=== PATIENT | female | born 1945 | race Caucasian/White ===

== ENCOUNTER 2023-10-02 21:12 | Inpatient (IN) | payer MEDICARE, BC, SELFPAY ==
[2023-10-02 21:13] VITALS: BP 111/87; PULSE 85; RESP 18; TEMP 36.4; O2SAT 93
--- NOTE | 2023-10-02 21:15 | DI.RAD_ITS ---
Exam(s) XR PELVIS AP XR FEMUR RT EXAM: XR PELVIS AP and XR femur RT CLINICAL HISTORY: R hip fracture. TECHNIQUE: 2D digital imaging was performed.Five images were obtained. COMPARISON: There are no priors for comparison. FINDINGS: BONES: There is an acute intertrochanteric fracture of the right femur. The large lesser trochanteri c fracture fragment is medially displaced and rotated. No other acute fractures identified. Note is made of intramedullary janell and screw in the proximal left femur. No bony destructive lesion is seen . JOINTS: No dislocation present. The visualized portions of the right hip and right knee show no evide nce of dislocation.. SOFT TISSUE: Normal. IMPRESSION: Intertrochanteric fracture of the right femur as described above. DATA REPOSITORY: RADIATION DOSE DELIVERED:
--- NOTE | 2023-10-02 21:25 | ED.GENADUL_ITS ---
Discharge Plan Disposition Patient Disposition: Admit to [facility] Condition: Stable Discharge Details Clinical Impression: Fracture of right hip Primary Care Provider: Clementine,Local ED Provider: Lisandro Robins Medical Decision Making This dictation utilizes [id number] dictation software and may contain unedited grammatical errors. 78 y/o F presents to ED today with a chief complaint of R hip pain, fall at home while toiletting. Onset and characteristics include ground level fall outside bathroom, denies medical symptomology like dizziness, nausea, fever, vertigo, visual changes prior to fall. Patients' medical history: Noncontributory, denies significant cardiac disease, takes half of a 25 mg metoprolol for tachycardia. Family and social history: noncontributory, denies Fhx clotting disorders.. Pertinent exam findings / vital signs include right hip tenderness with right leg length discrepancy, right dorsalis pedis pulse 2+, sensation intact in the right foot, no rigid compartment to the right femur. Differential / pathologies of concern include Hip Fracture, Hip Strain/Sprain, Femur Fracture. Diagnostic studies of: -XR Hip, XR Femur - shows significant fracture of proximal R femur, consulting orthopaedics. -EKG ordered after admission Interventions of: -2mg IV morphine PRN, 4mg IV Zofran PRN, NPO. ED Course: Patient has a significant right hip fracture- intratrochanteric likely needing surgical repair with significant displacement of a portion, angulated, the proximal femur, discussed with Dr. Shane who agrees, consulted with Hospitalist Dr Page, who accepted for admission. No history of significant cardiac disease. Findings not consistent with NV compromise of lower extremity. Disposition of Fracture of Right Hip. Patient verbalized understanding of the plan and return to ED criteria and engaged in shared decision making. Medical Records Medical records reviewed: Yes I reviewed the patient's medical records. Imaging Data Radiologic Study: Attestation: I personally reviewed and interpreted this imaging study as follows: Imaging: X-Ray My impression: Fracture to proximal humerus, possibly intertrochanteric HPI General Date/Time Provider Initiated Documentation: 10/02/23 21:23 . HPI Narrative: 78 year-old female, R-foot dominant, presents to ED today by EMS with a chief complaint of fall at home outside the bathroom, per EMS R leg shortening with onset just prior to arrival. Quality described as pain in the R hip down through the leg, with some tingling to the R foot, no radiation to chest pain prior to fall, dizziness, states she missed a step. Severity is described as 8-9/10. Palliating factors include 150mcg fentanyl by EMS and 4mg zofran en route by EMS. Provoking factors include nothing specific. Events leading up to the incident/Associated Symptoms: Patient has history of janell to L hip/femur. Patient not anticoagulated. Related Data Allergies Allergy/AdvReac Type Severity Reaction Status Date / Time Sulfa (Sulfonamide Allergy Intermediate Unverified 10/02/23 21:23 Antibiotics) General Stated Complaint: Orthopedic BERYL: 3 Review of Systems All systems reviewed & are unremarkable except as noted in HPI and below PFSH All Active Problems (Updated 10/02/23 @ 22:11 by GAYE Alva) Fracture of right hip (Acute) Social History Smoking/Tobacco Use Status: Never Smoking risk assessment performed?: Yes Alcohol Intake: never Substance use type: does not use Housing: other Exam Narrative Exam Narrative: GENERAL APPEARANCE: Well-nourished, non-toxic, awake and alert, atraumatic, no acute distress. SKIN: Warm, pink, dry, intact, without rashes/lesions/ulcerations. HEAD: Normocephalic, atraumatic, normal hair distribution for gender/age. EYES: Pupils PERRLA, EOMs intact without nystagmus, normal conjunctiva, no exudates on lids/lashes. ENT: Nares patent, no circumoral cyanosis, no facial swelling NECK: Supple, trachea midline, painless cervical ROM. LUNGS/CHEST: Lungs CTA bilaterally - no rhonchi/rales/wheezes, non-labored respirations, normal A/P diameter, symmetrical expansion, no chest wall deformity HEART (CV/PV): Regular rate and rhythm without murmur, no peripheral edema, no JVD. ABDOMEN: Soft, non-distended, no guarding, no tenderness. MSK: Normal ROM, no swelling/deformity to bilateral UEs or LEs, moving all extremities without weakness, no cyanosis, spine midline without tenderness, normal curvature. Tenderness to palpation at the right proximal femur, pain radiates up to the proximal femur with varus valgus forces at the distal femur, the calf is unremarkable, right dorsalis pedis pulse 2+, dorsi plantarflexion intact. NEURO: Mental Status AAOx4 - alert to person, place, time, events No facial droop, no forehead involvement. Motor: No focal weakness - strength 5/5 in bilateral UEs and LEs, proximal and distal, symmetric. Sensory: sensation intact to light touch globally. Gait NT. PSYCH: euthymic, cooperative, pleasant, appropriate speech Course Vital Signs Vital signs: Vital Signs Temperature 36.4 C 10/02/23 21:13 Pulse 85 10/02/23 21:13 Respiratory Rate 18 10/02/23 21:13 Blood Pressure 111/87 10/02/23 21:13 Pulse Oximetry 93 10/02/23 21:13 Temperature 36.4 C 10/02/23 21:13 Temperature Source Tympanic 10/02/23 21:13 Pulse 85 10/02/23 21:13 Respiratory Rate 18 10/02/23 21:13 Respiratory Effort Normal 10/02/23 21:18 Blood Pressure 111/87 10/02/23 21:13 Blood Pressure Position Supine 10/02/23 21:13 Pulse Oximetry 93 10/02/23 21:13 Oxygen Delivery Method Room Air 10/02/23 21:13 Oxygen Flow Rate 0 10/02/23 21:13
[2023-10-02] MEDS: Acetaminophen 500 MG TAB 1000 MG PO (21:36)
[2023-10-02] MEDS: MORPHine 10 MG/ML VIAL 2 MG IVP ×2 (21:50→22:32)
--- NOTE | 2023-10-02 22:14 | W.ORTHOCONSU ---
Date of service: 10/03/23 Time of Service: 08:45 Assessment and Plan Assessment and plan (1) Fracture of right hip: Status: Acute Assessment and plan: 78 year old female with Right hip intertrochanteric fx Medical admission & optimization for surgery tomorrow: Right hip intramedullary nailing Bedrest, pain control, SCDs, NPO post midnight Will d/w hospitalist and ARMAND AM update?patient awake alert resting comfortably in hospital bed, complains of discomfort localized about the right hip. Walks without assist device. Visiting [place] for the holiday, mechanical fall last night. Isolated right hip injury. Left hip fracture and nailing about 3 years ago home in [facility], describes prolonged period of apprehension and difficulty mobilizing postoperatively. Concerned about blood clot, no personal issues with blood clotting, but her ?not genetically related?his family has apparently some blood clots. She was on injections debridement of blood clot after last hip fracture. She is not from this area, does not have family in this area. Denies any significant medical history. No personal allergies, but states she has a family history possibly allergic or allergen to sulfa medications. No pre-existing hip pain or hip dysfunction on this right side. Patient demonstrates intact motor no deformity tenderness and sensation intact throughout bilateral upper extremities and left lower extremity. Right hip discomfort, not vigorously tested. Thigh compartments soft. No overlying skin lesions. Remainder of right lower extremity below the knee nontender, sensation intact, demonstrates intact foot and ankle motor. No paresthesias. No SCDs or teds on either side, but calfs are soft nontender no signs of blood clot. Pelvis and femur x-rays reviewed showing obvious right hip intertrochanteric fracture with fairly maintained alignment through the intertrochanteric region, but with a large displaced lesser trochanteric fracture fragment. Partially visualized contralateral left hip cephalomedullary nail in place. No femoral shaft or knee fractures visualized. Discussed thoroughly with patient. Probably similar type fracture and treatment to her contralateral side. No pathologic or lytic lesions although the lesser trochanteric fractures can be associated with neoplasm. Will scrutinize postoperative films. Literature review does not show any clear benefit for reduction fixation of lesser trochanteric fractures in the setting of intertrochanteric hip nailing. Start postoperative chemical DVT prophylaxis within 12-24 hours after surgery. Decision to proceed with surgery today: Right hip intramedullary nailing The risks, benefits, and alternatives were thoroughly discussed. Patient was counseled regarding pain management, expected postoperative course, and recovery timeline. All questions were answered. Informed consent was obtained. Patient agrees and understands the treatment plan. PFSH All Active Problems (Updated 10/03/23 @ 00:13 by Neal Page) Discharge planning issues (Acute) DVT prophylaxis (Acute) Fracture of right hip (Acute) Medical History (Updated 10/03/23 @ 00:13 by Neal Page) Osteoporosis Hypertension Surgical History (Updated 10/03/23 @ 00:12 by Neal Page) S/P vertebroplasty Status post-operative repair of closed fracture of left hip Family History (Updated 10/03/23 @ 00:14 by Neal Page) Mother , age 78, does not know cancer source Cancer Father , in 80s Heart disease Social History (Updated 10/03/23 @ 00:15 by Neal Page) Smoking/Tobacco Use Status: Never Smoking risk assessment performed?: Yes Alcohol Intake: current Details: drink once/week Drug use: Never Substance use type: does not use Housing: other Additional Social history: Lives with Mayank in [facility] near [place]. They [facility] at [facility]. 2 kids but not local Results Last Vital Signs Temp 97.6 F 10/02/23 21:13 Pulse 85 10/02/23 21:13 Resp 18 10/02/23 21:13 BP 111/87 10/02/23 21:13 Pulse Ox 93 10/02/23 21:13 Labs 10/02/23 22:00 10/02/23 22:00
--- NOTE | 2023-10-02 22:15 | RT.EKG_ITS ---
APPROVED REPORT Exam: Resting ECG Reason for Exam: clearance for surgery Patient Location: E HR:66 bpm ECG Measurements Heart Rate 66 AXIS VT 181 P 57 QRSd 75 QRS 19 QT 417 T 64 QTc 437 Conclusion Sinus rhythm...normal P axis, V-rate 60- 99 I have reviewed and interpreted ECG and agree with software generated interpretation.
[2023-10-02] MEDS: Ondansetron 4 MG/2 ML VIAL IVP (22:30)
--- NOTE | 2023-10-02 22:45 | DI.VRAD_ITS ---
PROCEDURE INFORMATION: Exam: XR Pelvis Exam date and time: 10/02/2023 9:54 PM Age: 78 years old Clinical indication: Other: RT hip fracture? TECHNIQUE: Imaging protocol: Radiologic exam of the pelvis. Views: 1 or 2 view. COMPARISON: No relevant prior studies available. FINDINGS: Bones/joints: An acute fracture is present across the intertrochanteric right femur. A large displaced fracture fragment of the lesser trochanter is part of the fracture. The fracture line through the greater trochanter shows mild diastasis and no significant displacement. The pubic rami are intact. Hardware is present in the left femur. Soft tissues: Unremarkable. IMPRESSION: Intratrochanteric fracture in the right femur. Dictated and Authenticated by: Lyndon Lopez MD. Ordering:ARMOND Mcmahon MD
--- NOTE | 2023-10-02 22:50 | DI.VRAD_ITS ---
PROCEDURE INFORMATION: Exam: XR Right Femur Exam date and time: 10/02/2023 9:55 PM Age: 78 years old Clinical indication: Other: R hip fracture, pain through knee TECHNIQUE: Imaging protocol: Radiologic exam of the right femur. Views: 2 views. COMPARISON: CR XR PELVIS AP 10/02/2023 9:54 PM FINDINGS: Bones/joints: An acute fracture of the intertrochanteric right femur is noted. The lesser trochanter is displaced as a free fragment. There are no other fractures observed in the femur. The hip and knee are appropriately located. Soft tissues: Unremarkable. IMPRESSION: Intratrochanteric fracture, right femur. Dictated and Authenticated by: Lyndon Lopez MD. Ordering:ARMOND Mcmahon MD
--- NOTE | 2023-10-02 23:07 | W.PM.HP.N ---
Date of service: 10/02/23 Time of Service: 23:07 Assessment and Plan Assessment and plan (1) Fracture of right hip: Status: Acute Assessment and plan: Ms Sauer tripped and fell and suffered an intratrocanteric right femur fracture. She has already be evaluated by Dr. Shane from orthopedics with repair planned for the morning. She is NPO now. She is a little dry so will start mainteance fluids. She is not very active but has adequate functional capacity at baseline, no history of vascular or respiratory disease. Her EKG is reassuring Morphine effective at 4mg, but caused nausea. Has had good relief with fentanyl without nausea, will change PRN to this. Mojica given limited mobility, she hasn't been able to urinate since her fall. Remove once mobilizing postop. Qualifiers: Encounter type: initial encounter Fracture type: closed Qualified Code(s): S72.001A - Fracture of unspecified part of neck of right femur, initial encounter for closed fracture (2) Hypertension: Assessment and plan: BP is well controlled on low dose metoprolol. She states she changed from another medication to metoprolol after her left hip surgery because her heart was beating rapidly during rehabilitation. She is sure it is the tatrate form and it is once a day, which is not standard and may be allowing for pulse/BP elevation at night. However, I am hesitant to change form prior to surgery. Continue her home metoprolol at standard BID dosing. I do wonder with her use of aspirin if she did have paroxysmal atrial fibrillation and that would explain the story. Try to get PCP records. Qualifiers: Hypertension type: primary hypertension Qualified Code(s): I10 - Essential (primary) hypertension (3) DVT prophylaxis: Status: Acute Assessment and plan: TEDs/SCDs for now, post op per orthopedics (4) Discharge planning issues: Status: Acute Assessment and plan: Rehab per orthopedics, she would prefer rehabilitation facility near [place], [place] History of Present Illness History of Present Illness Chief Complaint: fall, hip pain Narrative: 78 yo F with a history of osteoporosis and left femur fracture repair in 2019 after a fall presents after missing a step and falling with right hip pain. She was staying at the [facility] with her for the holiday weekend and had eaten dinner and was returning to the room after using the restroom. She missed a step down and lost her balance, fell on right side and had immediate pain. Similar to fall in which she broke the other hip 3 years ago. She felt fine before the fall, had no chest pain, dizziness, weakness, palpitations, or other signs of illness. She had one glass of wine with her meal, no other alcohol. Of note she had some tachycardia during rehab after her first hip fracture, she thinks related to pain. At that time she was on another blood pressure medication. When they started metoprolol they stopped the other medication. She has a history of taking alendronate for years, but not since the 2020 fracture. She takes calcium and vitamin D. She takes aspirin 81mg but she isn't sure why, no history of heart disease or stroke, no history of blood clot. She can get up stairs and walk a couple blocks on the flat, but has to rest before doing much more than that. She doesn't exercise regularly. Review of Systems Constitutional Constitutional: Denies anorexia, Denies chills, Denies fever(s), Denies frequent falls, Denies headache(s), Denies lethargy, Denies weakness, Reports weight gain (a few pounds this year) and Denies weight loss Eyes Eyes: Denies change in vision and Denies irritation ENT Ears, Nose, Mouth, and Throat: Denies dizziness, Denies headache(s), Denies nasal congestion, Denies nasal discharge and Denies sore throat Cardiovascular Cardiovascular: Denies chest pain, Denies chest pain with activity, Denies lightheadedness, Denies palpitations, Denies dyspnea and Denies orthopnea Respiratory Respiratory: Denies cough, Denies excessive phlegm production, Denies dyspnea and Denies wheezing Gastrointestinal Gastrointestinal: Denies abdominal pain, Denies melena, Denies hematochezia, Denies constipation, Denies heartburn, Denies diarrhea, Reports nausea (only after morphine) and Denies vomiting Genitourinary Genitourinary: Denies hematuria, Denies dysuria and Denies urinary incontinence Integumentary/Breasts Skin/Breast: Denies rash and Denies skin ulcer Neurologic Neurologic: Denies confusion, Denies dizziness, Denies frequent falls, Denies headache(s), Denies sensory deficit and Denies weakness Psychiatric Psychiatric: Denies confusion and Denies mood swings Endocrine Endocrine: Denies palpitations Hematologic/Lymphatic Hematologic/Lymphatic: Denies easy bleeding Allergic/Immunologic Allergic/Immunologic: Denies wheezing PFSH All Active Problems (Updated 10/03/23 @ 00:13 by Neal Page) Discharge planning issues (Acute) DVT prophylaxis (Acute) Fracture of right hip (Acute) Medical History (Updated 10/03/23 @ 00:13 by Neal Page) Osteoporosis Hypertension Surgical History (Updated 10/03/23 @ 00:12 by Neal Page) S/P vertebroplasty Status post-operative repair of closed fracture of left hip Family History (Updated 10/03/23 @ 00:14 by Neal Page) Mother , age 78, does not know cancer source Cancer Father , in 80s Heart disease Social History (Updated 10/03/23 @ 00:15 by Neal Page) Smoking/Tobacco Use Status: Never Smoking risk assessment performed?: Yes Alcohol Intake: current Details: drink once/week Drug use: Never Substance use type: does not use Housing: other Additional Social history: Lives with Mayank in [facility] near [place]. They [facility] at [facility]. 2 kids but not local Meds Allergies and Home Medications Allergies Allergy/AdvReac Type Severity Reaction Status Date / Time Sulfa (Sulfonamide Allergy Intermediate Unverified 10/02/23 21:23 Antibiotics) Exam Narrative Exam Narrative: GEN: Alert and oriented, pleasant and cooperative, gives linear history. No acute distress at rest. HEENT: Head atraumatic. Conjunctiva clear, no icterus. PEERL, EOMI. no rhinorrhea. MM a little dry, OP benign. Neck is supple with no masses or lymphadenopathy LUNGS: CTAB with normal effort CV: RRR with no murmurs, gallops, or rubs. No elevation JVP ABD: +BS, soft, NT/ND, no masses or HSM. EXT: no cyanosis, clubbing. Trace guy edema at ankles, spider veins. no calf tenderness. MSK: No joint redness. Right leg shortened and externally rotated NEURO: CN 2-12 grossly intact. Normal movement of 4 extremities. Normal speech and coordination SKIN: No rashes or open wounds (I did not roll her to look at sacrum) PSYCH: normal mood and affect Results Imaging EKG: image reviewed (NSR 65, normal axis and intervals, no ST-T abnormalities. Normal EKG) Imaging Studies: XR pelvis: Intratrochanteric fracture in the right femur. XR right femur: Intratrochanteric fracture, right femur. Labs 10/02/23 Unknown 10/02/23 23:05 Last Vital Signs Temp 36.4 C 10/02/23 21:13 Pulse 85 10/02/23 21:13 Resp 18 10/02/23 21:13 BP 111/87 10/02/23 21:13 Pulse Ox 93 10/02/23 21:13 Time Spent Time spent with Patient: 55-74 minutes Time was spent: preparing to see the patient(eg.review tests), obtaining and/or reviewing separately otained hiistory, ordering medications,tests, procedures, referring, communicating with other health manager progressive care, indepentently interpreting results and counseling the patient
[2023-10-02 23:14] LABS: HCT 37.6 % (36.0-46.0); HGB 12.3 g/dL (11.2-15.7); MCH 29.6 pg (27.0-33.0); MCHC 32.7 % (32.0-36.0); MCV 90 fL (80-95); MPV 10.6 fL (8.0-11.0); Platelet Count 319 10^3/uL (130-400); RBC 4.16 10^6/uL (3.93-5.22); RDW-SD 42.7 fL; WBC 9.21 10^3/uL (4.4-10.8)
[2023-10-02 23:25] LABS: Anion Gap 6.8 mmol/L (3-11); BUN 34 mg/dL (7-18); CO2 29.2 mmol/L (21.0-32.0); CREATININE 0.9 mg/dL (0.55-1.02); Calcium 9.1 mg/dL (8.5-10.1); Chloride 106 mmol/L (98-107); Estimated GFR 65.44 (mL/min/1.73m2); Glucose 109 mg/dL (74-106); Potassium 3.6 mmol/L (3.5-5.1); Sodium 142 mmol/L (136-145)
[2023-10-03] VITALS (15 sets, daily range): BP systolic 61–119; BP diastolic 37–82; PULSE 72–130; RESP 13–22; TEMP 36.5–37.6; O2SAT 94–100; BMI 24.3
[2023-10-03] MEDS: POTASSIUM CHLORIDE/D5-0.9%NACL 1,000 ML 100 MEQ IV (00:30)
[2023-10-03] MEDS: fentaNYL 100 MCG/2 ML VIAL 25 MCG IVP ×2 (04:12→06:09)
--- NOTE | 2023-10-03 08:14 | ANES.PREOP_ITS ---
General Info Date of Service Date Performed: 10/03/23 Height: 5 ft 1 in Weight: 58.513 kg Body Mass Index (BMI): 24.3 Surgical Procedure: Operation Date: 10/03/23 07:35 Proposed Procedure Side Surgeon p Hip TFNA Right Riaz Healy MD Meds Allergies and Home Medications Allergies Allergy/AdvReac Type Severity Reaction Status Date / Time Sulfa (Sulfonamide Allergy Intermediate Unverified 10/02/23 21:23 Antibiotics) Current Visit Medications: Current Medications Generic Name Dose Route Start Last Admin Trade Name Freq PRN Reason Stop Dose Admin Acetaminophen 325 - 650 mg 10/02/23 23:02 Acetaminophen 325 Mg Tab PO Q4H PRN PRN Fentanyl 25 mcg 10/02/23 23:52 10/03/23 06:09 Fentanyl 100 Mcg/2 Ml Vial IVP 25 mcg Q1H PRN PRN Administration Potassium Chloride/Dextrose/Sod Cl 1,000 mls @ 100 mls/hr 10/02/23 23:45 10/03/23 00:30 Kcl 20meq/D5-0.9% Nacl IV 100 mls/hr INFUSION ALDO Administration Metoprolol Tartrate 12.5 mg 10/03/23 08:30 Metoprolol 25 Mg Tab PO BID ALDO Ondansetron HCl 4 mg 10/02/23 23:54 Ondansetron 4 Mg/2 Ml Vial IVP Q8H PRN PRN PFSH Active Problems Active Problems: Problem Status Onset Code Discharge planning issues Z02.9 DVT prophylaxis Z29.9 Fracture of right hip S72.001A Medical History Medical History (Updated 10/03/23 @ 00:13 by Neal Page) Osteoporosis Hypertension Surgical History Surgical History (Updated 10/03/23 @ 00:12 by Neal Page) S/P vertebroplasty Status post-operative repair of closed fracture of left hip Tobacco Smoking/Tobacco Use Status: Never Alcohol Alcohol Intake: current Details: drink once/week Substance Use Substance use: Never Substance use type: does not use Vital Signs and Lab Results Vital Signs Most Recent Vital Signs in EMR: Most Recent Vital Signs Temp Pulse Resp BP Pulse Ox 37.2 C 94 H 22 112/60 94 10/03/23 07:17 10/03/23 07:17 10/03/23 07:17 10/03/23 07:17 10/03/23 07:17 Lab Results 10/02/23 22:00 10/02/23 22:00 Blood Type / Crossmatch: 2 No Data to Display Complete Blood Count: 2 White Blood Count 9.21 10^3/uL (4.4-10.8) 10/02/23 22:00 Red Blood Count 4.16 10^6/uL (3.93-5.22) 10/02/23 22:00 Hemoglobin 12.3 g/dL (11.2-15.7) 10/02/23 22:00 Hematocrit 37.6 % (36.0-46.0) 10/02/23 22:00 Platelet Count 319 10^3/uL (130-400) 10/02/23 22:00 Complete Metabolic Panel: 2 Sodium 142 mmol/L (136-145) 10/02/23 22:00 Potassium 3.6 mmol/L (3.5-5.1) 10/02/23 22:00 Chloride 106 mmol/L (98-107) 10/02/23 22:00 Carbon Dioxide 29.2 mmol/L (21.0-32.0) 10/02/23 22:00 BUN 34 mg/dL (7-18) H 10/02/23 22:00 Creatinine 0.9 mg/dL (0.55-1.02) 10/02/23 22:00 Est GFR (CKD-EPI 2020) 65.44 (mL/min/1.73m2) 10/02/23 22:00 Calcium 9.1 mg/dL (8.5-10.1) 10/02/23 22:00 Glucose 109 mg/dL (74-106) H 10/02/23 22:00 Liver Function Panel: 2 No Data to Display Coagulation Panel: 2 No Data to Display Cardiac Panel: 2 No Data to Display Arterial Blood Gas: 2 No Data to Display Venous Blood Gas: 2 No Data to Display Pancreas Panel: 2 No Data to Display Thyroid Panel: 2 No Data to Display Infectious Disease: 2 No Data to Display Blood Cultures: 2 No Data to Display Toxicology Panel: 2 No Data to Display Imaging and Studies Imaging and Studies Study information below may be from another EMR and interpreted by another provider. Please see original notes in EMR for more complete details. EKG Summary: Conclusion Sinus rhythm...normal P axis, V-rate 60- 99 10/02/23 Anesthesia Assessment and Plan Anesthesia History Personal History: No History of Anesthesia Complications Family History: No Family History of Anesthesia Complications Exercise Tolerance Exercise Tolerance: Metabolic Equivalents<4 Pertinent Negatives Pertinent Negatives: No Major Cardiovascular Symptoms or Complaints, No Major Pulmonary Symptoms or Complaints and No History of CVA/TIA Cardiac & Pulmonary Exam Cardiac Exam: Normal S1/S2 Heart Sounds Pulmonary Exam: Clear Bilateral Breath Sounds Implantable Cardiac Device Does patient have a Pacemaker or an ICD?: No Airway Exam Known Difficult Airway: No Mallampati Class: 2 Mouth Opening: Normal (> 3cm) Thyromental Distance: Greater than 3 cm Neck Range of Motion: Full ROM Neck Circumference: Normal Teeth Condition: Normal Dentition ASA Classification ASA Score: ASA 2 Emergency Case?: No NPO Status NPO Status: NPO Clears >2 hours, Solids >8 hours Anesthesia Plan Resuscitation Status: Full Code Anesthesia Technique: General Anesthesia Airway Planned: Endotracheal Tube Monitors Used: Standard Monitors
[2023-10-03] MEDS: Lactated Ringers 1,000 ML 30 ML IV (09:09)
[2023-10-03] MEDS: ceFAZolin 2 GM/50 ML BAG 100 GM (09:10)
[2023-10-03] MEDS: Bupivacaine 0.25% Pres-Free 30 ML VIAL (09:54)
[2023-10-03] MEDS: EPINEPHrine 10 MG/10 ML ML (09:55)
--- NOTE | 2023-10-03 09:59 | W.PM.PROGNOT ---
Date of Service Date of service: 10/03/23 Time of Service: 09:59 Assessment and Plan Assessment and plan (1) Fracture of right hip: Status: Deleted Assessment and plan: Dr. Shane from orthopedics will proceeded with repair. The patient expressed that she had adverse reactions to morphine-nausea; tramadol- fainting. Will schedule APAP as pertinent to her age Her EKG is reassuring, ST 105 Morphine effective at 4mg, but caused nausea, relieved by ondansetron Fentanyl 25 mcg does not cause nausea and might be considered as a PRN Naproxen PRN. If she refuses her ultram we might consider oxicodone 5 mg PRN Mojica given limited mobility, she hasn't been able to urinate since her fall. Remove once mobilizing postop. Bowel management medicine Qualifiers: Encounter type: initial encounter Fracture type: closed Qualified Code(s): S72.001A - Fracture of unspecified part of neck of right femur, initial encounter for closed fracture (2) Hypertension: Assessment and plan: On low dose metoprolol, missed prior to OR. HR 116-140 this afternoon , metoprolol 2.5 mg IVP ordered and will continue to [facility]. Continue her home metoprolol at standard BID dosing. Mentioned taking it to keep her heart from racing but unable to state if she had atrial fibrillation; also taking ASA 81 mg orally daily Trying to get PCP records. Qualifiers: Hypertension type: primary hypertension Qualified Code(s): I10 - Essential (primary) hypertension (3) DVT prophylaxis: Status: Acute Assessment and plan: TEDs/SCDs for now, post op per orthopedics LMWH on 10/04 (4) Discharge planning issues: Status: Acute Assessment and plan: Rehab per orthopedics, she would prefer rehabilitation facility near [place], [place] Discussed with Subjective Subjective Patient reports: no new complaints, still having pain (9/10), tolerating liquids well, tolerating a regular diet, voiding w/o difficulty, flatus and nausea; denies diarrhea, vomiting or shortness of breath Exam Narrative Exam Narrative: Constitutional The patient is in bed uncomfortable, pain 9/10 and cooperative during the interview. The patient is well groomed and has average body habitus/is obese/ is thin. HENMT: Head is atraumatic, normocephalic, no lymphadenopathy. Facial structures with normal appearance Eyes: Well aligned, intact ROM Neck: Normal ROM, no meningeal signs Neuro:alert and oriented to self, person, place time and situation. No neurological focal deficit, Chest:Chest is symmetrical and normal appearance Resp: Normal respiratory pattern, speaks in full sentences, unlabored breathing, clear lung bilaterally Cardio: Telemetry ST 105 S1, S2, no murmur, capillary refill<3 sec., bilateral radial and dorsalis pedis pulses are positive, palpable GI: Abdomen is not distended, soft and non tender, bowel sounds are present : no bladder distension Back/spine/Pelvis: normal alignment Integumentary: No skin lesions or rash, mepilex is DCI to surgical site on right hip Extremities: strength 4/5 right lower and 5/5 upper extremities and LLE Psych: RASS 0, congruent mood and normal to minimally anxious affect. Objective Last Vital Signs Temp 37.2 C 10/03/23 07:17 Pulse 94 H 10/03/23 07:17 Resp 22 10/03/23 07:17 BP 112/60 10/03/23 07:17 Pulse Ox 94 10/03/23 07:17 Laboratory Results - last 24 hr 10/02/23 22:00 WBC 9.21 RBC 4.16 Hgb 12.3 Hct 37.6 MCV 90 MCH 29.6 MCHC 32.7 RDW 13.0 Plt Count 319 MPV 10.6 Sodium 142 Potassium 3.6 Chloride 106 Carbon Dioxide 29.2 Anion Gap 6.8 BUN 34 H Creatinine 0.9 Est GFR (CKD-EPI 2020) 65.44 Glucose 109 H Calcium 9.1 Time Spent with Patient Time Spent with Patient: >50 minutes Time was spent: preparing to see the patient(eg.review tests), ordering medications,tests, procedures, referring, communicating with other health career services officer, indepentently interpreting results, counseling the patient and care coordination
--- NOTE | 2023-10-03 10:25 | DI.RAD_ITS ---
Exam(s) XR HIP RT IN OR EXAM: XR HIP RT IN OR CLINICAL HISTORY: right hip fracture TECHNIQUE: 2D and realtime digital imaging was performed. CONTRAST MATERIAL: Refer to procedure report. COMPARISON: CR,XR XR PELVIS AP from 10/02/2023 CR,XR XR FEMUR RT from 10/02/2023 FINDINGS: Fluoroscopy was provided for Dr. Healy during the performance of a reduction and internal fixation o f the intertrochanteric right femoral fracture. Please refer to the procedure report for complete de tails. Ka,r=5.87 mGy IMPRESSION: RADIATION DOSE DELIVERED:
--- NOTE | 2023-10-03 10:33 | W.PM.OP ---
Date of service: 10/03/23 Time of Service: 09:30 Operative Note Operative Note DATE OF PROCEDURE: 10/03/23 PRE-OP DIAGNOSIS: Right hip intertrochanteric fracture POST-OP DIAGNOSIS: same PROCEDURE: Right hip intramedullary nail, CPT #32969 SURGEON: Riaz Healy ENGINEERING COORDINATOR: Antione Veronica ANESTHESIA TYPE: Local By Surgeon and General LMA/ETT Refer to Anesthesia Record ESTIMATED BLOOD LOSS: 10 COMPLICATIONS: None Patient was transported to: PACU Patient's condition: stable Implants: Synthes TFNA [id number] 130 deg, 85mm TFNA helical blade, 32mm 5.0mm distal locking screw Indications: Please see medical record for details Procedure Description: In the operating room, general anesthesia was induced. The patient was transferred and positioned supine on the fracture table. All bony prominences were well padded. Pre-operative antibiotics were administered. C-arm fluoroscopy was used to confirm appropriate provisional fracture reduction. The correct patient, procedure, and side of the procedure were all verified prior to incision. 30 cc bupivacaine local anesthetic with epinephrine was infiltrated about the planned start point as well as later about the lateral entry site for cephalomedullary and distal locking screws. C-arm fluoroscopy was used to locate the appropriate start point for the guide wire on the tip of the greater trochanter. This guide wire was advanced centrally down the proximal femur to the level of the lessor trochanter. Lateral images confirmed appropriate start point on the trochanter. Next the incision was extended about the guide wire to accommodate the nailing jig and this incision was carried down through the fascia and spread apart for ease of future instrument passage. The entry reamer was used to open the proximal femur. The entry reamer and guidewire were removed from the proximal femur. The appropriately selected nail was assembled on the back table to the jig and tested to ensure proper passage of the cephalomedullary drill. This implant was manually inserted into the proximal femur and advanced to the appropriate level for cephalomedullary fixation. Another incision was made laterally to accommodate the cephalomedullary aiming tube and trochar, which was advanced down to bone. The guide wire was then advanced into the femoral neck and adjusted on AP and lateral fluoroscopy until it was placed near subchondral bone in the center-center position in the femoral head. The depth gauge was used to measure the helical blade length accommodating for depth of guidewire insertion. Next, the drills were used to open the lateral cortex, drill over the wire, and the helical blade was advanced to the appropriate depth by gentle mallet blows. The set screw was engaged and backed off 180 degrees to allow for rotationally-controlled sliding and compression. The fracture was gently compressed appropriately via the buttress and compression nut on the jig. The cephalomedullary aiming guide was removed. The distal locking screw guide was inserted through the distal aspect of the lateral incision down the bone. The drill was used to drill for this static locking screw and measure the length. The appropriate length screw was then inserted bicortically. The jig was removed from the nail. Final AP and lateral fluoroscopic images were taken and confirmed appropriate fracture reduction and implant placement. All wounds were copiously irrigated. Deep layers were closed using 0 vicryl in an interrupted fashion. Subcutaneous tissue was closed using 2-0 monocryl in a buried interrupted fashion followed by 3-0 Monocryl for the skin proximal incision. Skin glue was applied to all incisions. Incisions were covered with Mepilex Band-Aids. The patient awoke from anesthesia without complication and was transferred to the recovery room in stable condition.
--- NOTE | 2023-10-03 10:37 | W.PM.PROGNOT ---
Date of Service Date of service: 10/03/23 Time of Service: 10:48 Assessment and Plan Assessment and plan (1) Intertrochanteric fracture of right hip: Status: Acute Assessment and plan: 78-year-old female postop day #0 status post right Hip IMN Resting in PACU, complains of right hip discomfort, vital stable and do not show objective discomfort or distress, dressings clean dry intact, thigh compartments soft, demonstrates intact motor about foot and ankle, sensory intact throughout the right thigh leg foot and ankle. Distal 2+ dorsalis pedis pulse. Appreciate medical management, discharge home about 2 hours away in [place] as soon as appropriate. Patient preference to follow-up locally [place] [facility] in about 2 weeks. The following orders have been placed? 24 hours postoperative antibiotics Discontinue Mojica later today Pain control-Multimodal Physical therapy: Weightbearing as tolerated with assist device Start chemical DVT prophylaxis later today- Lovenox ordered, can do aspirin 81 mg twice daily to complete 30 days of treatment as outpatient assuming discharge home with reasonable mobility Continue mechanical DVT prophylaxis with bilateral SCDs and/or SRI hose Objective Last Vital Signs Temp 99.0 F 10/03/23 07:17 Pulse 94 H 10/03/23 07:17 Resp 22 10/03/23 07:17 BP 112/60 10/03/23 07:17 Pulse Ox 94 10/03/23 07:17 Laboratory Results - last 24 hr 10/02/23 22:00 WBC 9.21 RBC 4.16 Hgb 12.3 Hct 37.6 MCV 90 MCH 29.6 MCHC 32.7 RDW 13.0 Plt Count 319 MPV 10.6 Sodium 142 Potassium 3.6 Chloride 106 Carbon Dioxide 29.2 Anion Gap 6.8 BUN 34 H Creatinine 0.9 Est GFR (CKD-EPI 2020) 65.44 Glucose 109 H Calcium 9.1 Time Spent with Patient Time Spent with Patient: <25 minutes Time was spent: ordering medications,tests, procedures, counseling the patient and care coordination
[2023-10-03] MEDS: ePHEDrine 25 MG/5 ML Syringe ×3 (10:46→11:12)
[2023-10-03] MEDS: fentaNYL 100 MCG/2 ML VIAL IVP ×3 (10:53→11:20)
[2023-10-03] MEDS: ACETAMINOPHEN 1,000 MG/100 ML BTL 600 MG (11:03)
--- NOTE | 2023-10-03 11:29 | W.ANESPOSTOP ---
Postoperative Evaluation Date, Time and Location Date Performed: 10/03/23 Time Performed: 11:29 Patient Location: PACU Vital Signs Most Recent Imported Vital Signs: Most Recent Vital Signs Temp Pulse Resp BP Pulse Ox 36.7 C 94 H 22 112/60 94 10/03/23 10:38 10/03/23 07:17 10/03/23 07:17 10/03/23 07:17 10/03/23 07:17 Pain Score Most Recent Pain Score: Most Recent Pain Score Pain Level 10/03/23 07:17 Assessment Mental Status: Awake (Alert & Oriented to Patient Baseline) Airway and Respiratory Function: Patent airway with normal (patient baseline) respiratory exam Cardiovascular Function: Hemodynamically Stable Hydration Status: Adequately Hydrated Nausea & Vomiting: No Nausea or Vomiting Pain: Pain is tolerable per patient (05/20) Peripheral Nerve Block: Patient did not receive a nerve block
[2023-10-03] MEDS: ceFAZolin 1 GM/50 ML BAG IVPB ×2 (14:34→21:31)
[2023-10-03] MEDS: Naproxen 500 MG TAB PO (15:34)
[2023-10-03] MEDS: ACETAMINOPHEN 1,000 MG/100 ML BTL 400 MG IVPB (17:13)
[2023-10-03] MEDS: Metoprolol 5 MG/5 ML VIAL 2.5 MG IVP (17:13)
[2023-10-03] MEDS: Metoprolol 25 MG TAB 12.5 MG PO (20:04)
[2023-10-03] MEDS: Docusate Sodium 100 MG CAP PO (20:04)
[2023-10-03] MEDS: oxyCODONE 5 MG TAB PO (21:30)
[2023-10-04] VITALS (49 sets, daily range): BP systolic 82–115; BP diastolic 48–70; PULSE 72–123; RESP 14–22; TEMP 36.3–38.2; O2SAT 92–98
[2023-10-04] MEDS: Normal Saline Flush 10 ML SYR IVP ×4 (01:21→22:38)
[2023-10-04] MEDS: ACETAMINOPHEN 1,000 MG/100 ML BTL 400 MG IVPB ×3 (01:22→16:50)
[2023-10-04] MEDS: ceFAZolin 1 GM/50 ML BAG IVPB (05:31)
[2023-10-04 07:03] LABS: Abs Immature Grans 0.06 10^3/uL (0.0-0.06); Absolute Basophil Count 0.05 10^3/uL (0.0-0.2); Absolute Eosinophil Count 0.12 10^3/uL (0.0-0.7); Absolute Lymphocyte Count 1.82 10^3/uL (1.2-3.4); Absolute Monocyte Count 0.98 10^3/uL (0.1-0.8); Basophils % 0.5; Eosinophils % 1.3; HCT 26.8 % (36.0-46.0); Immature Grans % 0.7; Lymphocytes % 19.9; MCH 30.4 pg (27.0-33.0); MCHC 33.6 % (32.0-36.0); MCV 91 fL (80-95); MPV 10.4 fL (8.0-11.0); Monocytes % 10.7; Neutrophils % 66.9; Platelet Count 201 10^3/uL (130-400); RBC 2.96 10^6/uL (3.93-5.22); RDW 13.2 % (11.7-14.6); RDW-SD 43.5 fL; WBC 9.13 10^3/uL (4.4-10.8)
[2023-10-04 07:27] LABS: Anion Gap 5.7 mmol/L (3-11); BUN 22 mg/dL (7-18); CO2 27.3 mmol/L (21.0-32.0); CREATININE 1.1 mg/dL (0.55-1.02); Calcium 8.5 mg/dL (8.5-10.1); Chloride 107 mmol/L (98-107); Estimated GFR 51.43 (mL/min/1.73m2); Glucose 102 mg/dL (74-106); Magnesium 1.9 mg/dL (1.8-2.4); Sodium 140 mmol/L (136-145)
[2023-10-04] MEDS: Metoprolol 25 MG TAB 12.5 MG PO ×2 (07:38→20:20)
[2023-10-04] MEDS: Docusate Sodium 100 MG CAP PO (07:38)
[2023-10-04] MEDS: Naproxen 500 MG TAB PO (07:38)
--- NOTE | 2023-10-04 08:46 | PT.INIE ---
PT Notes Visit Reasons: hip fracture Physical Therapy Inpatient Initial Evaluation Date: 10/04/2023 Referring Doctor: Riaz Healy MD PT Orders: PT CONSULT: S/P R thumb surgery Precautions: Fall. Standard. WBAT on right LE with AD. Patient Profile/Admitting Diagnosis: Deedee is a 78-year-old female who sustained a medially displaced and rotated right intertrochanteric fracture from a fall and is status post right intramedullary nailing on postoperative day 1. PMHX: All Active Problems (Updated 10/03/23 @ 00:13 by Neal Page) Discharge planning issues (Acute) DVT prophylaxis (Acute) Fracture of right hip (Acute) Medical History (Updated 10/03/23 @ 00:13 by Neal Page) Osteoporosis Hypertension Social History/Home Situation: Lives with in a private home with 3 steps to enter leading onto a ladning and then another 1 step to house entrance. Recently came home from rehab of L hip from a SNF. Equipment Owned/DME: None Subjective: 7/10 pain in the R hip and thigh that is aggravted by movement and weight bearing. Nurse Riki aware. Objective: General Observation: Sitting at edge of bed. present in room upon PT arrival. Mepilex Ag over surgical incisions. TEDS to be legs. Mental Status: Alert and oriented as to person, place, time, and purpose. Able to pay attention, focus, and respond appropriately. Pain: As above Vital Signs: 108/58 mmHg, 90 bpm, and 97% oxygen saturation as taken by nursing staff ROM: Right Lower Extremity: Hip flexion lacks the last 50% of AROM. Hip abduction lacks the last 50% of AROM 50%. Knee flexion 45 to 90 degrees. Ankle dorsiflexion to neutral only. Ankle plantarflexion WFL. Left Lower Extremity: Hip flexion lacks the last 25% of AROM. Hip abduction lacks the last 25% of AROM 50%. Knee flexion 20 to 100 degrees. Ankle dorsiflexion to neutral only. Ankle plantarflexion WFL. Strength: Right Lower Extremity: Hip flexors 3-/5. Hip abductors 3-/5. Knee flexors 3-/5. Knee extensors 3-/5. Ankle dorsiflexors 3-/5. Ankle plantarflexors 4-/5. Left Lower Extremity: Hip flexors 3-/5. Hip abductors 3-/5. Knee flexors 3-/5. Knee extensors 3-/5. Ankle dorsiflexors 3-/5. Ankle plantarflexors 4-/5. Bed Mobility/Transfers: Minimal cues provided for hand placement, movement sequence, and AD management to minimize pain and reduce fall risk Sit to stand minimal assist Stand to sit minimal assist Bed to reclining chair minimal assist Reclining chair to bed minimal assist Gait: Facilitated safe and correct performance of level surface ambulation covering a distance of 10 feet with step to reciprocal gait pattern but with decreased dorsiflexion on B sides with report of pain at 7/10 on the right hip. Lightheadedness worsened which limited ambulation distance. Balance: Static Sitting: Normal Dynamic Sitting: Normal Static Standing: Fair Dynamic Standing: Fair Special Tests: Mobility Limitations Standardized Measure [facility] AM-PAC 6 clicks Basic Mobility Inpatient Short Form: Raw Score: 18 CMS Score: 47% deficit Informed Consent/Education: Patient was instructed in purpose of PT consult and plan of care. Agreeable to proceed with established PT POC to achieve personal goals. ASSESSMENT Lightheadedness worsens with upright positioning. Blood pressure softens in sitting and standing. Pain level also decreases activity tolerance at this time. Patient presents with clinical signs and symptoms consistent with current/admitting diagnoses that have resulted to mobility limitations, gait instability, generalized weakness, and overall ADL decline as demonstrated by the following impairment level findings: 1. Decreased strength to B LE major muscle groups 2. Impaired sitting/standing balance 3. Impaired activity tolerance 4. Limitation of joint range of motion in B hips and knee 5. Orthostatic hypotension 6. Pain at 7/10 at rest and with weigt bearing Impairments are contributing to the following functional limitations: 1. Decline in bed mobility skills 2. Decline in transfer skills 3. Difficulty with ambulation without assistive device and physical assistance 4. Increased completion time for mobility ADL performance 5. Increased risk for falls 6. Difficulty with managing steps alone safely Patient is assessed as a 18517 moderate complexity based on the following: History: 78-year-old female with past medical history as indicated above Examination: Demonstrable impairment in strength, balance, and mobility level with underlying impairments and functional limitations as exhibited above as well as deficit score of 47% utilizing the [facility] Mobility Inpatient Short Form Presentation: Evolving Decision Makin moderate complexity Goals: Goals X1 week 1. Supine-Sit independent 2. Sit-Supine independent 3. Sit-Stand independent 4. Stand-Sit independent with FWW 5. Bed-Chair independent with FWW 6. Chair-Bed independent with FWW 7. Independent gait on level surface with use of FWW for at least 300 feet without report of pain nor dyspnea 8. Independent stair negotiation while holding onto B rails for at least 5 steps without report of pain nor dyspnea 9. Independent with home exercise program 10. Good static and dynamic standing balance/tolerance Plan of Care/Treatment Plan: 1-2x/day, 7 days/week x 1 week. Plan of care has been reviewed with the UPPER EXTREMITY SURGEON providing the service under Physical Therapy direction. Initiate Physical Therapy intervention for pain management as needed, strengthening, bed mobility, transfers, gait, stairs, balance training, and use of assistive device. Closely monitor BP during session. Pre-medicate for pain. DISCHARGE RECOMMENDATIONS: [] Home with no services [] [] Home with services [specify] [] Home with outpatient PT [] [] SNF for continued rehabilitation [] [] [facility] [] [] SNF versus LTC based on ability to participate and progress [] [X] PT vs. SNF based on progress towards goals TREATMENT CODE/TIME: 54474 x 25 minutes beginning at 8:46 AM. Thank you for the opportunity to participate in the care of this patient. Hyacinth Delgado PT, DPT, CLT [facility] [place], [place]
--- NOTE | 2023-10-04 09:32 | PDOC.CMIN ---
Date of service: 10/04/23 Time of Service: 09:32 Care Management Initial Assmt Initial Assessment REASON FOR HOSPITALIZATION:: Hip Fracture PREVIOUS FUNCTIONAL STATUS/SOCIAL/FAMILY SUPPORTS:: Resides in [facility] with , independent at baseline. CURRENT FUNCTIONAL STATUS:: Presents with hip fracture, brought to OR ADVANCE DIRECTIVES:: None on file Has patient been provided with info about the portal/API?: No Did the patient sign up for the portal?: No CODE STATUS:: Full Code INSURANCE COVERAGE / FINANCIAL ISSUES:: Medicare, [employer] CURRENT HOME/COMMUNITY SERVICES/EQUIPMENT:: None PRIMARY CARE PHYSICIAN:: Unknown POTENTIAL DISCHARGE NEEDS:: New home health orders, transport support PATIENT/FAMILY EDUCATION NEEDS:: Review discharge instructions, discuss Ask Me Three. ANTICIPATED BARRIERS TO DISCHARGE:: None identified. TRANSPORTATION:: TBD by mobility PLAN:: Deedee will return home when ready per MD with new home health orders to be coordinated through in [facility]#[phone]. [facility], H&P and PT notes faxed, CM called and notified of pending orders. Agency reported services delayed until early next week. Need to determine PCP and transportation; CM asked provider if patient would require EMS d/t new hip fix and length of transport, extended transport sitting up in a chair may be difficult; awaiting determination. CM continues to follow. PFSH All Active Problems (Updated 10/03/23 @ 10:49 by Riaz Healy MD) Intertrochanteric fracture of right hip (Acute 10/02/23) Discharge planning issues (Acute) DVT prophylaxis (Acute) Medical History (Updated 10/03/23 @ 10:49 by Riaz Healy MD) Osteoporosis Hypertension Surgical History (Updated 10/03/23 @ 00:12 by Neal Page) S/P vertebroplasty Status post-operative repair of closed fracture of left hip Family History (Updated 10/03/23 @ 00:14 by Neal Page) Mother , age 78, does not know cancer source Cancer Father , in 80s Heart disease Social History (Updated 10/03/23 @ 00:15 by Neal Page) Smoking/Tobacco Use Status: Never Smoking risk assessment performed?: Yes Alcohol Intake: current Details: drink once/week Drug use: Never Substance use type: does not use Housing: other Additional Social history: Lives with Mayank in [facility] near [place]. They met at [facility], [facility]. 2 kids but not local
[2023-10-04] MEDS: oxyCODONE 5 MG TAB PO (12:38)
--- NOTE | 2023-10-04 12:48 | W.PM.PROGNOT ---
Date of Service Date of service: 10/04/23 Time of Service: 12:48 Assessment and Plan Assessment and plan (1) Fracture of right hip: Status: Deleted Assessment and plan: Dr. Shane from orthopedics will proceeded with repair; outptient referral once discharged ordered as spouse expressed concerns re:f/u . The patient expressed that she had adverse reactions to morphine-nausea; tramadol- fainting.Tramadol and morphine discontinued. Will continue schedule APAP as pertinent to her age Telemetry SR HR 83 Fentanyl 25 mcg does not cause nausea and might be considered as a PRN Naproxen BID PRN.Cr 1.1 from 0.9 Continue oxycodone 5 mg PRN Chicas given limited mobility, she hasn't been able to urinate since her fall. Remove once mobilizing postop. D/c chicas today Bowel management medicine: colace BID Actually patient is POD#1 Right hip intramedullary nail, performed 10/[address] Healy. Qualifiers: Encounter type: initial encounter Fracture type: closed Qualified Code(s): S72.001A - Fracture of unspecified part of neck of right femur, initial encounter for closed fracture (2) Hypertension: Assessment and plan: On low dose metoprolol, missed prior to OR. HR 116-140 this afternoon , metoprolol 2.5 mg IVP ordered and will continue to [facility]. Continue her home metoprolol at standard BID dosing. Mentioned taking it to keep her heart from racing but unable to state if she had atrial fibrillation; also taking ASA 81 mg orally daily Trying to get PCP records. Patient did not have tachycardia today and did not miss any doses of metoprolol today. The above statement reflects the events from yesterday. HR and rhythm have been stable w/ sinus rhythm in the 70's to 80's. Qualifiers: Hypertension type: primary hypertension Qualified Code(s): I10 - Essential (primary) hypertension (3) DVT prophylaxis: Status: Acute Assessment and plan: TEDs/SCDs for now, post op per orthopedics LMWH on 10/04 (4) Discharge planning issues: Status: Acute Assessment and plan: Rehab per orthopedics, she would prefer rehabilitation facility near [place], [place] Discussed with (5) Anemia: Status: Chronic Assessment and plan: Over 2 point loss in H&H Patient reporting symptoms such as dizziness, presyncope sensation with ambulation; LR 250 ml bolus given for SBP 88 ;H&H remains stable in PM Labs in AM Qualifiers: Anemia type: unspecified type Qualified Code(s): D64.9 - Anemia, unspecified Subjective Subjective Patient reports: no new complaints, still having pain (with PT, coordination PT-Nursing for oxycodone to be given 1 hour prior to PT), pain is less, tolerating liquids well, tolerating a regular diet, voiding w/o difficulty, flatus, no bowel movement, nausea, afebrile and other (During PT: dizziness, visual changes and fainting sensation as she experienced increased pain ); denies diarrhea, vomiting, shortness of breath or fever Exam Narrative Exam Narrative: Constitutional The patient is in bed comfortable, pain is controlled except when she works with physical therapy; cooperative during the interview. The patient is well groomed and has average body habitus HENMT: Head is normocephalic. Facial structures with normal appearance Eyes: Well aligned, intact ROM Neuro:alert and oriented to self, person, place time and situation. No neurological focal deficit Chest:Chest is symmetrical and normal appearance Resp: Normal respiratory pattern, speaks in full sentences, unlabored breathing, clear lung bilaterally Cardio: Telemetry SR 83, max 104, S1, S2, no murmur., bilateral radial and dorsalis pedis pulses are positive, palpable GI: Abdomen is not distended, soft and non tender, bowel sounds are present : no bladder distension, chicas Back/spine/Pelvis: normal alignment Integumentary: No skin lesions or rash, dressing is DCI to surgical site on right hip Extremities: strength 4/5 right lower and 5/5 upper extremities and LLE Psych: RASS 0, congruent mood and normal to minimally anxious affect. Objective Last Vital Signs Temp 37.3 C 10/04/23 12:21 Pulse 85 10/04/23 12:21 Resp 17 10/04/23 12:21 BP 91/58 L 10/04/23 12:21 Pulse Ox 96 10/04/23 12:21 Laboratory Results - last 24 hr 10/04/23 05:47 WBC 9.13 RBC 2.96 L Hgb 9.0 L D Hct 26.8 L MCV 91 MCH 30.4 MCHC 33.6 RDW 13.2 Plt Count 201 MPV 10.4 Immature Gran % 0.7 Neutrophils % 66.9 Lymphocytes % 19.9 Monocytes % 10.7 Eosinophils % 1.3 Basophils % 0.5 Nucleated RBC % 0.0 Absolute Neutrophils 6.10 Absolute Lymphocytes 1.82 Absolute Monocytes 0.98 H Absolute Eosinophils 0.12 Absolute Basophils 0.05 Sodium 140 Potassium 4.0 Chloride 107 Carbon Dioxide 27.3 Anion Gap 5.7 BUN 22 H Creatinine 1.1 H Est GFR (CKD-EPI 2020) 51.43 Glucose 102 Calcium 8.5 Magnesium 1.9 Time Spent with Patient Time Spent with Patient: >50 minutes Time was spent: preparing to see the patient(eg.review tests), ordering medications,tests, procedures, referring, communicating with other health career orientation teacher, indepentently interpreting results, counseling the patient and care coordination
--- NOTE | 2023-10-04 13:02 | PT.INTREAT ---
PT Notes Visit Reasons: hip fracture Physical Therapy Inpatient Treatment Note Date: 10/04/2023 Precautions: Fall. Standard. WBAT on right LE with AD. Subjective: 6-7/10 pain in the R hip and thigh that is aggravted by movement and weight bearing. Nurse Riki aware. Objective: General Observation: Sitting at edge of bed. present in room upon PT arrival. Mepilex Ag over surgical incisions. TEDS to be legs. Mental Status: Alert and oriented as to person, place, time, and purpose. Able to pay attention, focus, and respond appropriately. Pain: As above Vital Signs: 76/40 mmHgafter ambulation with PT Bed Mobility/Transfers: Minimal cues provided for hand placement, movement sequence, and AD management to minimize pain and reduce fall risk Sit to stand minimal assist Stand to sit minimal assist Bed to reclining chair minimal assist Reclining chair to bed minimal assist Sit to supine minimal assist of 2 Gait: Facilitated safe and correct performance of level surface ambulation covering a distance of 12 feet + 8 feet with step to reciprocal gait pattern but with decreased dorsiflexion on B sides with report of pain at 6-7/10 on the right hip. Lightheadedness worsened which limited ambulation distance. Balance: Static Sitting: Normal Dynamic Sitting: Normal Static Standing: Fair Dynamic Standing: Fair ASSESSMENT Lightheadedness worsens with upright positioning. Blood pressure softens in sitting and standing. Pain level also decreases activity tolerance at this time. Needed to be placed back to bed as patient complained of seein black and feeling about to collapse. Nurse Lyn in roomand assisted with patient assessment and positioning. Patient looked pale and BP went down to 76/40 mmHg after a short in-room walk and Patient presents with clinical signs and symptoms consistent with current/admitting diagnoses that have resulted to mobility limitations, gait instability, generalized weakness, and overall ADL decline as demonstrated by the following impairment level findings: 1. Decreased strength to B LE major muscle groups 2. Impaired sitting/standing balance 3. Impaired activity tolerance 4. Limitation of joint range of motion in B hips and knee 5. Orthostatic hypotension 6. Pain at 7/10 at rest and with weigt bearing Impairments are contributing to the following functional limitations: 1. Decline in bed mobility skills 2. Decline in transfer skills 3. Difficulty with ambulation without assistive device and physical assistance 4. Increased completion time for mobility ADL performance 5. Increased risk for falls 6. Difficulty with managing steps alone safely Plan of Care/Treatment Plan: 1-2x/day, 7 days/week x 1 week. Plan of care has been reviewed with the EARLY CHILDHOOD ASSISTANT providing the service under Physical Therapy direction. Initiate Physical Therapy intervention for pain management as needed, strengthening, bed mobility, transfers, gait, stairs, balance training, and use of assistive device. Closely monitor BP during session. Pre-medicate for pain. DISCHARGE RECOMMENDATIONS: [] Home with no services [] [] Home with services [specify] [] Home with outpatient PT [] [] SNF for continued rehabilitation [] [] Care Home Care [] [] SNF versus LTC based on ability to participate and progress [] [X] PT vs. SNF based on progress towards goals TREATMENT CODE/TIME: 47798 x 41 minutes for 3 units beginning at 13:02 PM.
[2023-10-04] MEDS: Lactated Ringers 250 ML IV (13:54)
[2023-10-04] MEDS: Enoxaparin 40 MG/0.4 ML SYR SC (13:56)
--- NOTE | 2023-10-04 14:05 | NUR.NOTE ---
Nursing Note: While PT was working with patient, patient became pale, dizzy, and was seeing black. Phyiscal therapist instructed patient to sit down. RN proceeded to take BP which was 82/48. RN and PT assisted patient to lay down with feet elevated. RN retook BP once patient had laid down with legs elevated - 95/52 was the initial BP when laying down and 110/60 was after 5 minutes. Charge nurse notified and MANAGER QUALITY IMPROVEMENT ordered 250 bolus of LR and CBC. ECHO was recommended by RN. Bolus running at this time.
[2023-10-04 14:08] LABS: HCT 27.7 % (36.0-46.0); HGB 9.1 g/dL (11.2-15.7); MCH 30.4 pg (27.0-33.0); MCHC 32.9 % (32.0-36.0); MCV 93 fL (80-95); MPV 9.8 fL (8.0-11.0); Platelet Count 222 10^3/uL (130-400); RBC 2.99 10^6/uL (3.93-5.22); RDW 13.4 % (11.7-14.6); RDW-SD 45.7 fL; WBC 10.29 10^3/uL (4.4-10.8)
--- NOTE | 2023-10-04 14:09 | CHAPLAIN ---
Deedee was sitting at the edge of her bed when I visited. She was pleasant and explained that she and her are staying at the [facility] in [place] for the weekend, and she fell in her room on the third floor. They are visiting the area from [facility]. Deedee said her is frustrated with trying to reach people, including or Care Management Department, because of the holiday. Apparently the Pastry Finisher stopped in just after Mr. Sauer and left for a few minutes, and plans were made to meet in person tomorrow.
[2023-10-04] MEDS: Ondansetron O.D.T. 4 MG TABEF PO (16:49)
--- NOTE | 2023-10-04 20:45 | DI.RAD_ITS ---
Exam(s) XR PORTABLE CHEST AP EXAM: XR PORTABLE CHEST AP CLINICAL HISTORY: fever post-op TECHNIQUE: 2D digital imaging was performed of the chest. One image was obtained. An AP view was ob tained. COMPARISON: No exams were available for comparison FINDINGS: MEDIASTINUM: Normal. HEART: Normal. PULMONARY VASCULATURE: Normal. LUNGS: Clear. PLEURAL SPACE: No pleural effusion or pneumothorax. BONE:Within normal limits for the patient's age. OTHER FINDINGS:Normal. IMPRESSION: No acute pulmonary findings. DATA REPOSITORY: RADIATION DOSE DELIVERED:
[2023-10-04 21:30] LABS: Lactate 0.9 mmol/L (0.6-1.4)
[2023-10-04 21:46] LABS: ALT 15 U/L (14-59); AST 26 U/L (15-37); Albumin 2.3 g/dL (3.4-5.0); Alkaline Phosphatase 55 U/L (46-116); Anion Gap 3.1 mmol/L (3-11); BUN 52 mg/dL (7-18); Bilirubin, Total 0.8 mg/dL (0.2-1.0); CO2 26.9 mmol/L (21.0-32.0); CREATININE 0.8 mg/dL (0.55-1.02); Calcium 7.9 mg/dL (8.5-10.1); Chloride 107 mmol/L (98-107); Estimated GFR 75.37 (mL/min/1.73m2); Glucose 141 mg/dL (74-106); Potassium 4.3 mmol/L (3.5-5.1); Sodium 137 mmol/L (136-145); Total Protein 4.9 g/dL (6.4-8.2)
[2023-10-04 22:02] LABS: Procalcitonin 0.2 ng/mL
--- NOTE | 2023-10-04 22:05 | DI.VRAD_ITS ---
PROCEDURE INFORMATION: Exam: XR Chest Exam date and time: 10/04/2023 21:33 Age: 78 years old Clinical indication: Other: Fever post op TECHNIQUE: Imaging protocol: Radiologic exam of the chest. Views: 1 view. COMPARISON: No relevant prior studies available. FINDINGS: Lungs: Mild hyperinflation without airspace consolidation. Pleural spaces: No pleural effusion. No pneumothorax. Heart/Mediastinum: No significant cardiomegaly for position and projection. Bones/joints: There may be a chronic healed proximal left humeral deformity which is partially imaged. Chronic appearing upper lumbar vertebroplasty. No displaced fracture. IMPRESSION: Mild hyperinflation without airspace consolidation. Dictated and Authenticated by: Maile Ventura MD. Ordering:POLY Sandoval MD
[2023-10-04] MEDS: Normal Saline 250 ML IV (22:35)
[2023-10-04] MEDS: Ondansetron 4 MG/2 ML VIAL IVP (22:37)
[2023-10-04] MEDS: Normal Saline 1,000 ML 125 ML IV (22:37)
--- NOTE | 2023-10-04 22:56 | NUR.NOTE ---
Nursing Note: This RN answered a call for help from [facility] staff to find this patient horizontal across bottom of bed. Patient was not responsive to voice, light or painful stimuli. Per METABOLIC SPECIALIST, she was siting on the edge of the bed, we were getting up to go to the commode, and she just fell back all of a sudden. This RN assisted patient with METABOLIC SPECIALIST into bed and continued to assess patient. Pen light shined in pupils, PERRLA, no blink response. Sternal rub applied, no response. Upon sitting up HOB, patient spontaneously became responsive and verbalized: I'm going to puke. Pt vomited 300cc dark brown coffee ground emesis. Emesis gastrocult tested, positive for blood. CC notified, MD made aware. IVP ondansetron administered per JAN. Pt vitals obtained upon return of consciousness, BP 105/54, O2 saturation 93% on room air, respirations 14, heart rate 111 BPM. Patient denies memory of attempting to sit on edge of bed/passing out. Patient endorsed need to void, assisted with personnel x2 to stand pivot to commode without incidence. Upon returning to bed, patient appeared to again lose consciousness when laying down. Patient regained consciousness spontaneously and vomited another 300cc dark brown coffee ground emesis. Repeat VS: 113/69, O2 saturation 94%, respirations 22/min, heart rate 108 BPM. MD made aware and in to see patient. MD ordered NS bolus 250cc/hr then continuous fluids at 125cc/hr, initiated per JAN.
--- NOTE | 2023-10-04 23:10 | W.EVENT ---
Date of service: 10/04/23 Time of Service: 23:10 Event Note: This is a 78-year-old female patient status post right hip repair with pending 10/03/2023 after a mechanical fall at home with fracture. Midday postop day 1 the patient began to have decreased appetite and nausea and in the evening she began to have nausea with vomiting coffee-ground material and old blood with episodes of loss of consciousness with vagal syncope. She continues to have episodes of small amounts of coffee-ground emesis which testing positive and at one point did have hypotension earlier in the day late morning with fever over 30 ?C just before she began to have increasing nausea with emesis. I was called when she began to have emesis with old blood. She was slightly tachycardic and appeared to be orthostatic with position worsening when she tried to go to bed with increased nausea and vomiting. Labs were assessed with blood cultures and urine culture obtained and initiation of IV fluids resuscitation for early sepsis syndrome along with initiation of therapy broad-spectrum antibiotic to cover possible etiologies but no focus of infection obvious at this time. She would initiated on cefepime and vancomycin. She is having postoperative fever. She does not appear to have aspirated with her emesis and was guarding her airway at all times according to nurses. She was transferred to ICU for closer monitoring My assessment at the bedside after she had had several episodes of emesis reveal the patient appropriate for age and is alert and oriented x 3 in no distress when not having emesis. Lungs were clear and she had no cough other than gagging with her dry heaving. Heart had a regular rate and rhythm borderline tachycardia at times and abdomen was nontender to palpation. She has no edema of her lower extremities. Skin was normal color. She is status post right hip repair with dry post-surgical bandage and decreased movement of that hip. Vital signs are stable with good oxygenation on room air have a pulse oximeter above 94%, blood pressure with systolic dropping from 117 to 99 with patient symptomatic with orthostasis and pulse slightly of over 100 with normal respirations. Lab review did reveal stable electrolytes but BUN was slightly up to 52 compared to 34 earlier with WBC slightly up at 12.43 and patient covered for possible sepsis syndrome having a white count of 9.2 earlier. 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 The patient had advancing therapy for nausea with no further nausea and vomiting after moved to the ICU with Zofran and Reglan IV being used. She will be transfused with 2 units of packed red blood cells because of symptomatic acute anemia with acute upper GI bleed which seems to be resolving on IV Protonix and being NPO. Surgery was consulted and will see the patient in the morning for possible EGD. I spent more than 60 minutes the patient at bedside assessing her acute symptoms with high risk for acute decompensation with her active symptoms and change in vital signs along with changes status with fever. I have early sepsis. I did review her chart and labs and consult the patient as to process and diagnosis with consent for transfusion and patient aware surgeon will be seeing her in the morning. If she decompensates during the night, surgery will see her immediately. Dr. Andi Love is aware of the case and I did review treatment plan with which he agreed. Assessment/plan: 1: Acute upper GI bleed in a patient who states that she does not drink alcohol daily and appears to have low risk for esophageal varices. She clinically has acute gastritis with acute blood loss anemia which is symptomatic. She will be transfused 2 units of packed red blood cells, start Protonix IV 40 mg twice daily. Surgical consultation for EGD in the morning. 2: Acute blood loss anemia with 2 units packed blood blood cells to be given. 3: Postoperative fever with early sepsis syndrome requiring IV fluid resuscitation and patient stabilizing. Some of her symptoms are from her acute blood loss rather than pure sepsis syndrome. She is covered with IV vancomycin and cefepime with cultures obtained prior to initiation of antibiotics. Procalcitonin was low and lactate was normal. She did have an elevation of her WBC with fever and tachycardia though as stated, this could be from the acute distress her upper GI bleed. Continue IV antibiotic therapy and follow-up on cultures as well as trend fever. There is no obvious source of her fever at this time but she is postoperative. She did not appear to aspirate with her episodes of decreased consciousness when she was having vagal response to the emesis. Time Spent with Patient Time spent in critical care(minutes): 60 Time Spent Included: Coordination of care, Chart review, Documenting critically ill care, Time at immediate bedside and Discussing critically ill care with other medical staff
[2023-10-04 23:20] LABS: Abs Immature Grans 0.09 10^3/uL (0.0-0.06); Absolute Basophil Count 0.05 10^3/uL (0.0-0.2); Absolute Eosinophil Count 0.19 10^3/uL (0.0-0.7); Absolute Lymphocyte Count 1.47 10^3/uL (1.2-3.4); Absolute Monocyte Count 1.14 10^3/uL (0.1-0.8); Basophils % 0.4; Eosinophils % 1.5; HCT 23.1 % (36.0-46.0); HGB 7.6 g/dL (11.2-15.7); Immature Grans % 0.7; Lymphocytes % 11.8; MCH 30.4 pg (27.0-33.0); MCHC 32.9 % (32.0-36.0); MCV 92 fL (80-95); MPV 9.8 fL (8.0-11.0); Monocytes % 9.2; Neutrophils % 76.4; Platelet Count 206 10^3/uL (130-400); RDW 13.3 % (11.7-14.6); WBC 12.43 10^3/uL (4.4-10.8)
[2023-10-04 23:24] LABS: Bilirubin Negative (Negative); Blood Trace-lysed (Negative); Clarity Clear (Clear); Glucose Negative (Negative); Ketones Trace mg/dL (Negative); Leukocyte Esterase Trace (Negative); Nitrite Negative (Negative); Urobilinogen 0.2 mg/dL (Up to 0.2); pH 5.5 (5-8)
[2023-10-04 23:34] LABS: Bacteria Few HPF (Negative); C & S Indicated? C&S Done As Ordered; Casts Negative LPF (Negative); Crystals Negative HPF (Negative); Epithelial Cells Few HPF (Negative); Mucus Trace (Negative); Other Cells Few Transitional (Negative)
[2023-10-04] MEDS: CEFEPIME 2 GM in Normal Saline 50 ML IVPB (23:36)
[2023-10-05] VITALS (104 sets, daily range): BP systolic 57–119; BP diastolic 38–71; PULSE 76–102; RESP 12–25; TEMP 36.5–37.8; O2SAT 82–99
[2023-10-05] MEDS: Normal Saline Flush 10 ML SYR IVP ×2 (00:13→08:31)
[2023-10-05] MEDS: Pantoprazole 40 MG VIAL IVP ×3 (00:13→21:06)
[2023-10-05 00:25] LABS: COVID-19 PCR Negative (Negative); Influenza A PCR Negative (Negative); Influenza B PCR Negative (Negative); RSV PCR Negative (Negative)
[2023-10-05 00:27] LABS: Source Nasopharynx
[2023-10-05] MEDS: VANCOMYCIN 1,500 MG in Normal Saline 250 ML 166.667 MG IVPB (01:30)
[2023-10-05 01:55] LABS: Lactate 1.1 mmol/L (0.6-1.4)
--- NOTE | 2023-10-05 02:31 | SCONE_ITS ---
Date of service: 10/05/23 Time of Service: 02:31 Assessment and Plan Assessment and plan (1) Upper GI bleeding: Status: Acute Assessment and plan: The acute blood loss anemia, and symptoms, in particular the heme positive vomiting certainly seem consistent with acute upper gastrointestinal bleeding. She is already been started on proton pump inhibition therapy, and VTE prophylaxis being held. Hemoglobin had a favorable response to the transfusion of 1 unit of packed cells cells last night, and hemodynamics are reassuring at this point. She currently undergoing her second blood transfusion. I talked her using her at length about the most likely source, which I suspect is stress gastritis, possibly complicated by some underlying gastrointestinal reflux disease. At this point, there is no urgent indication for direct visualization with endoscopy. So long as she responds appropriately to blood transfusion and acid suppression, I think that is the most reasonable course of action. Obviously, if her hemoglobin continues to drift, or symptoms worsen, we could give reconsideration to endoscopy at this point History of Present Illness History of Present Illness Chief Complaint: Hematemesis Narrative: Deedee is 78 years old. She was admitted after fall resulting in right hip fracture. She underwent surgical repair of the fracture and was recovering when she developed several episodes of nausea and vomiting. There was some red tinges to the vomit as well as some coffee ground character. It was heme positive and she experienced an associated drop in her hgb. She was started on protonix. I was consulted for EGD. Significant history relative to the ROS includes some positional reflux that occurs when she sleeps on her stomach. This is on rare occasional and she has never required medical therapy. She has never undergone EGD. She is not a drinker, and she does not use tombacco. At the time of my evaluation the nausea and vomiting had resolved. Review of Systems Constitutional Constitutional: Reports fatigue, Reports lethargy, Reports poor appetite and Reports weakness Eyes Eyes: Reports as per HPI Cardiovascular Cardiovascular: Denies chest pain, Reports syncope and Denies dyspnea Respiratory Respiratory: Denies chest congestion, Denies cough and Denies dyspnea Gastrointestinal Gastrointestinal: Denies abdominal pain, Denies belching, Denies constipation, Denies cramping, Reports heartburn (Historically), Reports nausea (Acutely in the hospital), Reports vomiting (Acutely in the hospital) and Reports hematemesis (Acutely in the hospital) Genitourinary Genitourinary: Reports system reviewed and no additional complaints, except as documented Musculoskeletal Musculoskeletal: Reports arthralgias (Bilateral hips) and Denies muscle weakness Neurologic Neurologic: Reports confusion, Reports syncope and Reports weakness Psychiatric Psychiatric: Reports confusion Endocrine Endocrine: Reports fatigue Hematologic/Lymphatic Hematologic/Lymphatic: Denies easy bleeding and Denies easy bruising PFSH All Active Problems Upper GI bleeding (Acute) Anemia (Chronic) Intertrochanteric fracture of right hip (Acute 10/02/23) Discharge planning issues (Acute) DVT prophylaxis (Acute) Medical History Osteoporosis Hypertension Surgical History S/P vertebroplasty Status post-operative repair of closed fracture of left hip Family History Mother , age 78, does not know cancer source Cancer Father , in 80s Heart disease Social History Smoking/Tobacco Use Status: Never Smoking risk assessment performed?: Yes Alcohol Intake: current Details: drink once/week Drug use: Never Substance use type: does not use Housing: other Additional Social history: Lives with Mayank in [facility] near [place]. They [facility] at [facility]. 2 kids but not local Exam Const General: cooperative, comfortable and no acute distress Nutritional Appearance: average body habitus Orientation: alert, awake and oriented x3 HENMT Head: normal to inspection Eyes General: appearance normal, both eyes and all related structures Neck Neck: normal visual inspection Resp Effort & Inspection: normal respiratory effort and able to speak in complete sentences Cardio Rate: regular rate Rhythm: regular rhythm GI Inspection: normal to inspection Palpation: soft, no guarding, no hernias, no masses and nontender Percussion: normal to percussion Results Last Vital Signs Temp 100.0 F H 10/05/23 01:34 Pulse 98 H 10/05/23 01:34 Resp 14 10/05/23 01:34 BP 102/58 L 10/05/23 01:34 Pulse Ox 98 10/05/23 01:34 Labs 10/06/23 05:30 10/06/23 05:30 Labs: Laboratory Results - last 24 hr 10/04/23 10/04/23 10/04/23 05:47 14:03 21:15 WBC 9.13 10.29 RBC 2.96 L 2.99 L Hgb 9.0 L D 9.1 L Hct 26.8 L 27.7 L MCV 91 93 MCH 30.4 30.4 MCHC 33.6 32.9 RDW 13.2 13.4 Plt Count 201 222 MPV 10.4 9.8 Immature Gran % 0.7 Neutrophils % 66.9 Lymphocytes % 19.9 Monocytes % 10.7 Eosinophils % 1.3 Basophils % 0.5 Nucleated RBC % 0.0 Absolute Neutrophils 6.10 Absolute Lymphocytes 1.82 Absolute Monocytes 0.98 H Absolute Eosinophils 0.12 Absolute Basophils 0.05 VBG Lactate 0.9 Sodium 140 137 Potassium 4.0 4.3 Chloride 107 107 Carbon Dioxide 27.3 26.9 Anion Gap 5.7 3.1 BUN 22 H 52 H Creatinine 1.1 H 0.8 Est GFR (CKD-EPI 2020) 51.43 75.37 Glucose 102 141 H Calcium 8.5 7.9 L Magnesium 1.9 Total Bilirubin 0.8 AST 26 ALT 15 Alkaline Phosphatase 55 Total Protein 4.9 L Albumin 2.3 L Procalcitonin 0.2 Urine Color Urine Clarity Urine pH Ur Specific [place] Urine Protein Urine Ketones Urine Blood Urine Nitrite Urine Bilirubin Urine Urobilinogen Ur Leukocyte Esterase Urine RBC Urine WBC Ur Epithelial Cells Urine Crystals Urine Bacteria Urine Casts Urine Mucus Urine Other Ur Culture Indicated? Urine Glucose COVID-19 Source SARS-CoV-2 (PCR) Influenza Type A (PCR) Influenza Type B (PCR) RSV (PCR) Crossmatch 10/04/23 10/04/23 10/04/23 22:45 23:15 23:37 WBC 12.43 H RBC 2.50 L Hgb 7.6 L Hct 23.1 L MCV 92 MCH 30.4 MCHC 32.9 RDW 13.3 Plt Count 206 MPV 9.8 Immature Gran % 0.7 Neutrophils % 76.4 Lymphocytes % 11.8 Monocytes % 9.2 Eosinophils % 1.5 Basophils % 0.4 Nucleated RBC % 0.0 Absolute Neutrophils 9.50 H Absolute Lymphocytes 1.47 Absolute Monocytes 1.14 H Absolute Eosinophils 0.19 Absolute Basophils 0.05 VBG Lactate 1.0 Sodium Potassium Chloride Carbon Dioxide Anion Gap BUN Creatinine Est GFR (CKD-EPI 2020) Glucose Calcium Magnesium Total Bilirubin AST ALT Alkaline Phosphatase Total Protein Albumin Procalcitonin Urine Color Yellow Urine Clarity Clear Urine pH 5.5 Ur Specific [place] 1.020 Urine Protein Negative Urine Ketones Trace H Urine Blood Trace-lysed H Urine Nitrite Negative Urine Bilirubin Negative Urine Urobilinogen 0.2 Ur Leukocyte Esterase Trace H Urine RBC 3-5 H Urine WBC 10-20 H Ur Epithelial Cells Few Urine Crystals Negative Urine Bacteria Few Urine Casts Negative Urine Mucus Trace Urine Other Few Transitional Ur Culture Indicated? C&S Done As Ordered Urine Glucose Negative COVID-19 Source Nasopharynx SARS-CoV-2 (PCR) Negative Influenza Type A (PCR) Negative Influenza Type B (PCR) Negative RSV (PCR) Negative Crossmatch 10/05/23 01:45 WBC RBC Hgb Hct MCV MCH MCHC RDW Plt Count MPV Immature Gran % Neutrophils % Lymphocytes % Monocytes % Eosinophils % Basophils % Nucleated RBC % Absolute Neutrophils Absolute Lymphocytes Absolute Monocytes Absolute Eosinophils Absolute Basophils VBG Lactate 1.1 Sodium Potassium Chloride Carbon Dioxide Anion Gap BUN Creatinine Est GFR (CKD-EPI 2020) Glucose Calcium Magnesium Total Bilirubin AST ALT Alkaline Phosphatase Total Protein Albumin Procalcitonin Urine Color Urine Clarity Urine pH Ur Specific [place] Urine Protein Urine Ketones Urine Blood Urine Nitrite Urine Bilirubin Urine Urobilinogen Ur Leukocyte Esterase Urine RBC Urine WBC Ur Epithelial Cells Urine Crystals Urine Bacteria Urine Casts Urine Mucus Urine Other Ur Culture Indicated? Urine Glucose COVID-19 Source SARS-CoV-2 (PCR) Influenza Type A (PCR) Influenza Type B (PCR) RSV (PCR) Crossmatch See Detail
[2023-10-05] MEDS: ACETAMINOPHEN 1,000 MG/100 ML BTL 400 MG IVPB ×3 (02:49→18:20)
[2023-10-05 06:03] LABS: Abs Immature Grans 0.08 10^3/uL (0.0-0.06); Absolute Eosinophil Count 0.04 10^3/uL (0.0-0.7); Absolute Lymphocyte Count 1.46 10^3/uL (1.2-3.4); Absolute Neutrophil Count 9.02 10^3/uL (1.2-6.7); Basophils % 0.3; Eosinophils % 0.3; HCT 23.4 % (36.0-46.0); Immature Grans % 0.7; Lymphocytes % 12.5; MCH 31.5 pg (27.0-33.0); MCHC 34.6 % (32.0-36.0); MCV 91 fL (80-95); MPV 10.4 fL (8.0-11.0); Monocytes % 9.1; Neutrophils % 77.1; Platelet Count 186 10^3/uL (130-400); RBC 2.57 10^6/uL (3.93-5.22); RDW 13.2 % (11.7-14.6); RDW-SD 43.8 fL
[2023-10-05 06:06] LABS: Absolute Basophil Count 0.04 10^3/uL (0.0-0.2); Absolute Monocyte Count 1.06 10^3/uL (0.1-0.8)
[2023-10-05 06:07] LABS: HGB 8.1 g/dL (11.2-15.7)
[2023-10-05 06:27] LABS: Iron 49 ug/dL (50-170); Total Iron Binding Capacity 178 ug/dL (250-450); Transferrin Sat 28 % (15-50)
[2023-10-05 06:40] LABS: Anion Gap 4.2 mmol/L (3-11); BUN 56 mg/dL (7-18); CO2 23.8 mmol/L (21.0-32.0); CREATININE 0.9 mg/dL (0.55-1.02); Calcium 7.5 mg/dL (8.5-10.1); Chloride 110 mmol/L (98-107); Estimated GFR 65.44 (mL/min/1.73m2); Glucose 133 mg/dL (74-106); Potassium 4.2 mmol/L (3.5-5.1); Sodium 138 mmol/L (136-145)
[2023-10-05] MEDS: Metoprolol 25 MG TAB 12.5 MG PO ×2 (08:32→19:48)
--- NOTE | 2023-10-05 10:08 | W.PM.PROGNOT ---
Date of Service Date of service: 10/05/23 Time of Service: 10:09 Assessment and Plan Assessment and plan (1) Upper GI bleeding: Status: Acute Assessment and plan: DDX: Kellie Del Valle tear, PUD, stress induced gastritis/duodenitis NPO, iv protonix 40 mg q12h, surgical consult from Dr. Love appreciated. proceed w/ EGD later today. check H. pylori studies. avoid NASAID for her hip pain control. avoid enoxaparin for DVT prophylaxis. will use SCD for now Critical care time spent interviewing and examining the patient, reviewing studies, discussing case with patient's nurse and consulting physicians was 30 minutes. Case discussed with Dr. Andi Love general surgery. I will discuss the case further with Dr. Riaz Healy upon his arrival to the hospital. (2) Intertrochanteric fracture of right hip: Status: Acute Qualifiers: Encounter type: initial encounter Fracture type: closed Fracture alignment: displaced Qualified Code(s): S72.141A - Displaced intertrochanteric fracture of right femur, initial encounter for closed fracture (3) Anemia: Status: Chronic Assessment and plan: transfuse 2 units of PRBC and repeat her hemogram this afternoon, serial hemograms every 6 to 8 hr for 24h until certain no further bleeding. Qualifiers: Anemia type: unspecified type Qualified Code(s): D64.9 - Anemia, unspecified (4) DVT prophylaxis: Status: Acute Assessment and plan: SCD and TEDS, no chemoprophylaxis in setting of UGIB (5) Discharge planning issues: Status: Acute Assessment and plan: patient is from [facility] and was visiting here. She will need either home health w/ home P.T. on discharge or transfer to [facility] for SNF. Subjective Subjective Interval history since last seen: Mrs. Sauer had UGI bleed last night w/ hematemesis and developed hypotension and drop in her Hb to 7.6 gm. She presented to hospital with hemoglobin 12.3 g and dropped yesterday down to 9 g. This was initially thought to be due to dilution. Repeat hemoglobin was then checked in the afternoon yesterday was stable at 9.1 g but dropped to 7.6 gram when she was transferred to the ICU. She was transfused 2 units of PRBC, One unit has been completed and 2nd unit is now infusing. Dr. Andi Love, general surgery has been consulted and has seen the patient and will plan on endoscopy once she has been stabilized. She has been put on protonix. She states that she feels better this morning. No epigastric pain and no nausea. Exam Narrative Exam Narrative: Alert and oriented x4, no acute distress sitting up in bed reading the paper and talking w/ her . Lungs: Clear to auscultation and percussion Heart: Regular rate and rhythm without murmur rub or gallop. Normal apical impulse Abdomen: Nondistended, normal bowel sounds, nontender to palpation or percussion, no organomegaly, no bruits, no palpable masses Extremities: No peripheral cyanosis or edema. Normal pulses, right hip w/out induration or bruising over the lateral thigh Neurologic: grossly normal, normal sensation over her feet/legs Objective Last Vital Signs Temp 37.1 C 10/05/23 09:40 Pulse 80 10/05/23 09:40 Resp 20 10/05/23 09:40 BP 98/54 L 10/05/23 09:40 Pulse Ox 95 10/05/23 09:40 Laboratory Results - last 24 hr 10/04/23 10/04/23 10/04/23 14:03 21:15 22:45 WBC 10.29 RBC 2.99 L Hgb 9.1 L Hct 27.7 L MCV 93 MCH 30.4 MCHC 32.9 RDW 13.4 Plt Count 222 MPV 9.8 Immature Gran % Neutrophils % Lymphocytes % Monocytes % Eosinophils % Basophils % Nucleated RBC % Absolute Neutrophils Absolute Lymphocytes Absolute Monocytes Absolute Eosinophils Absolute Basophils VBG Lactate 0.9 Sodium 137 Potassium 4.3 Chloride 107 Carbon Dioxide 26.9 Anion Gap 3.1 BUN 52 H Creatinine 0.8 Est GFR (CKD-EPI 2020) 75.37 Glucose 141 H Calcium 7.9 L Iron TIBC Transferrin % Sat Total Bilirubin 0.8 AST 26 ALT 15 Alkaline Phosphatase 55 Total Protein 4.9 L Albumin 2.3 L Procalcitonin 0.2 Urine Color Yellow Urine Clarity Clear Urine pH 5.5 Ur Specific [place] 1.020 Urine Protein Negative Urine Ketones Trace H Urine Blood Trace-lysed H Urine Nitrite Negative Urine Bilirubin Negative Urine Urobilinogen 0.2 Ur Leukocyte Esterase Trace H Urine RBC 3-5 H Urine WBC 10-20 H Ur Epithelial Cells Few Urine Crystals Negative Urine Bacteria Few Urine Casts Negative Urine Mucus Trace Urine Other Few Transitional Ur Culture Indicated? C&S Done As Ordered Urine Glucose Negative COVID-19 Source SARS-CoV-2 (PCR) Influenza Type A (PCR) Influenza Type B (PCR) RSV (PCR) Patient ABO/Rh Antibody Screen Crossmatch 10/04/23 10/04/23 10/05/23 23:15 23:37 01:45 WBC 12.43 H RBC 2.50 L Hgb 7.6 L Hct 23.1 L MCV 92 MCH 30.4 MCHC 32.9 RDW 13.3 Plt Count 206 MPV 9.8 Immature Gran % 0.7 Neutrophils % 76.4 Lymphocytes % 11.8 Monocytes % 9.2 Eosinophils % 1.5 Basophils % 0.4 Nucleated RBC % 0.0 Absolute Neutrophils 9.50 H Absolute Lymphocytes 1.47 Absolute Monocytes 1.14 H Absolute Eosinophils 0.19 Absolute Basophils 0.05 VBG Lactate 1.0 1.1 Sodium Potassium Chloride Carbon Dioxide Anion Gap BUN Creatinine Est GFR (CKD-EPI 2020) Glucose Calcium Iron TIBC Transferrin % Sat Total Bilirubin AST ALT Alkaline Phosphatase Total Protein Albumin Procalcitonin Urine Color Urine Clarity Urine pH Ur Specific [place] Urine Protein Urine Ketones Urine Blood Urine Nitrite Urine Bilirubin Urine Urobilinogen Ur Leukocyte Esterase Urine RBC Urine WBC Ur Epithelial Cells Urine Crystals Urine Bacteria Urine Casts Urine Mucus Urine Other Ur Culture Indicated? Urine Glucose COVID-19 Source Nasopharynx SARS-CoV-2 (PCR) Negative Influenza Type A (PCR) Negative Influenza Type B (PCR) Negative RSV (PCR) Negative Patient ABO/Rh O Positive O Positive Antibody Screen NEGATIVE Crossmatch See Detail 10/05/23 05:52 WBC 11.70 H RBC 2.57 L Hgb 8.1 L Hct 23.4 L MCV 91 MCH 31.5 MCHC 34.6 RDW 13.2 Plt Count 186 MPV 10.4 Immature Gran % 0.7 Neutrophils % 77.1 Lymphocytes % 12.5 Monocytes % 9.1 Eosinophils % 0.3 Basophils % 0.3 Nucleated RBC % 0.0 Absolute Neutrophils 9.02 H Absolute Lymphocytes 1.46 Absolute Monocytes 1.06 H Absolute Eosinophils 0.04 Absolute Basophils 0.04 VBG Lactate Sodium 138 Potassium 4.2 Chloride 110 H Carbon Dioxide 23.8 Anion Gap 4.2 BUN 56 H Creatinine 0.9 Est GFR (CKD-EPI 2020) 65.44 Glucose 133 H Calcium 7.5 L Iron 49 L TIBC 178 L Transferrin % Sat 28 Total Bilirubin AST ALT Alkaline Phosphatase Total Protein Albumin Procalcitonin Urine Color Urine Clarity Urine pH Ur Specific [place] Urine Protein Urine Ketones Urine Blood Urine Nitrite Urine Bilirubin Urine Urobilinogen Ur Leukocyte Esterase Urine RBC Urine WBC Ur Epithelial Cells Urine Crystals Urine Bacteria Urine Casts Urine Mucus Urine Other Ur Culture Indicated? Urine Glucose COVID-19 Source SARS-CoV-2 (PCR) Influenza Type A (PCR) Influenza Type B (PCR) RSV (PCR) Patient ABO/Rh Antibody Screen Crossmatch Time Spent with Patient Time Spent with Patient: 25-34 minutes Time was spent: preparing to see the patient(eg.review tests), ordering medications,tests, procedures, referring, communicating with other health patient care coordinator, indepentently interpreting results, counseling the patient (As well as her ) and care coordination
--- NOTE | 2023-10-05 11:53 | PGE_ITS ---
Date of Service Date of service: 10/05/23 Time of Service: 11:53 Assessment and Plan Assessment and plan (1) Intertrochanteric fracture of right hip: Status: Acute Assessment and plan: 78-year-old female postop day #2 status post right Hip IMN Evaluated patient with her at the bedside. Resting comfortably in ICU, pain controlled, vital signs stable after transfusion, previously hypotensive, no tachycardia, but could be confounded by metoprolol. Denies any chest pain, shortness of breath, headache, fevers or chills, other orthopedic injuries. Clarified that previous injury to the contralateral side was what sounds like a femoral shaft fracture treated with a long hip nail about 5 years ago. Patient did note a challenging time mobilizing after this injury requiring acute rehabilitation. Denies any pre-existing reflux or stomach ulcer problems. Right hip dressings clean, dry, and intact. No erythema or signs of infection. No thigh, knee, leg ecchymosis. No notable thigh or right lower extremity edema. All thigh compartments soft. Bilateral calf soft, nontender. No signs of bleeding or blood clot. Demonstrates strong ankle dorsiflexion, palomo ntarflexion, and EHL. Sensation intact throughout the right lower extremity without paresthesias. 2+ dorsalis pedis pulse. Warm and well-perfused throughout. Able to demonstrate moderately strong knee extension, heel raise, but unable to actively straight leg raise on her own. Tolerates gentle passive moderate range of motion about the hip and knee without much difficulty. Discussed with Dr. Love and Dr. Hogan?no signs or symptoms of concerning bleeding about the hip or thigh. Acute blood loss likely from upper GI bleed. Avoid NSAIDs and aspirin. Hold chemical DVT prophylaxis pending repeat hemoglobin, hopefully resume tomorrow 24 hours after bleeding event, continue bilateral SCDs and TEDs. Continue Mojica for monitoring of ins and outs. Resume physical therapy and discharge planning when patient adequately resuscitated and appropriate. Call/message me with any questions or concerns about this patient Postoperative instructions? Surgery 10/03/2023 Right hip intramedullary nailing Activity: Weightbearing as tolerated with assist device Prescriptions: Pain medication and 30 days DVT prophylaxis Dressings: Leave dressings in place for 5 days. May then remove and leave open to air or cover incisions with Band-Aids. May shower after 7 days. Follow-up: 10-14 days with local orthopedic surgeon in [place], [place] (my office will send referral on Saturday) Qualifiers: Encounter type: initial encounter Fracture type: closed Fracture a lignment: displaced Qualified Code(s): S72.141A - Displaced intertrochanteric fracture of right femur, initial encounter for closed fracture Objective Last Vital Signs Temp 98.4 F 10/05/23 10:40 Pulse 83 10/05/23 10:40 Resp 18 10/05/23 10:40 BP 100/59 L 10/05/23 10:40 Pulse Ox 98 10/05/23 10:40 Laboratory Results - last 24 hr 10/04/23 10/04/23 10/04/23 14:03 21:15 22:45 WBC 10.29 RBC 2.99 L Hgb 9.1 L Hct 27.7 L MCV 93 MCH 30.4 MCHC 32.9 RDW 13.4 Plt Count 222 MPV 9.8 Immature Gran % Neutrophils % Lymphocytes % Monocytes % Eosinophils % Basophils % Nucleated RBC % Absolute Neutrophils Absolute Lymphocytes Absolute Monocytes Absolute Eosinophils Absolute Basophils VBG Lactate 0.9 Sodium 137 Potassium 4.3 Chloride 107 Carbon Dioxide 26.9 Anion Gap 3.1 BUN 52 H Creatinine 0.8 Est GFR (CKD-EPI 2020) 75.37 Glucose 141 H Calcium 7.9 L Iron TIBC Transferrin % Sat Total Bilirubin 0.8 AST 26 ALT 15 Alkaline Phosphatase 55 Total Protein 4.9 L Albumin 2.3 L Procalcitonin 0.2 Urine Color Yellow Urine Clarity Clear Urine pH 5.5 Ur Specific [place] 1.020 Urine Protein Negative Urine Ketones Trace H Urine Blood Trace-lysed H Urine Nitrite Negative Urine Bilirubin Negative Urine Urobilinogen 0.2 Ur Leukocyte Esterase Trace H Urine RBC 3-5 H Urine WBC 10-20 H Ur Epithelial Cells Few Urine Crystals Negative Urine Bacteria Few Urine Casts Negative Urine Mucus Trace Urine Other Few Transitional Ur Culture Indicated? C&S Done As Ordered Urine Glucose Negative COVID-19 Source SARS-CoV-2 (PCR) Influenza Type A (PCR) Influenza Type B (PCR) RSV (PCR) Patient ABO/Rh Antibody Screen Crossmatch 10/04/23 10/04/23 10/05/23 23:15 23:37 01:45 WBC 12.43 H RBC 2.50 L Hgb 7.6 L Hct 23.1 L MCV 92 MCH 30.4 MCHC 32.9 RDW 13.3 Plt Count 206 MPV 9.8 Immature Gran % 0.7 Neutrophils % 76.4 Lymphocytes % 11.8 Monocytes % 9.2 Eosinophils % 1.5 Basophils % 0.4 Nucleated RBC % 0.0 Absolute Neutrophils 9.50 H Absolute Lymphocytes 1.47 Absolute Monocytes 1.14 H Absolute Eosinophils 0.19 Absolute Basophils 0.05 VBG Lactate 1.0 1.1 Sodium Potassium Chloride Carbon Dioxide Anion Gap BUN Creatinine Est GFR (CKD-EPI 2020) Glucose Calcium Iron TIBC Transferrin % Sat Total Bilirubin AST ALT Alkaline Phosphatase Total Protein Albumin Procalcitonin Urine Color Urine Clarity Urine pH Ur Specific [place] Urine Protein Urine Ketones Urine Blood Urine Nitrite Urine Bilirubin Urine Urobilinogen Ur Leukocyte Esterase Urine RBC Urine WBC Ur Epithelial Cells Urine Crystals Urine Bacteria Urine Casts Urine Mucus Urine Other Ur Culture Indicated? Urine Glucose COVID-19 Source Nasopharynx SARS-CoV-2 (PCR) Negative Influenza Type A (PCR) Negative Influenza Type B (PCR) Negative RSV (PCR) Negative Patient ABO/Rh O Positive O Positive Antibody Screen NEGATIVE Crossmatch See Detail 10/05/23 05:52 WBC 11.70 H RBC 2.57 L Hgb 8.1 L Hct 23.4 L MCV 91 MCH 31.5 MCHC 34.6 RDW 13.2 Plt Count 186 MPV 10.4 Immature Gran % 0.7 Neutrophils % 77.1 Lymphocytes % 12.5 Monocytes % 9.1 Eosinophils % 0.3 Basophils % 0.3 Nucleated RBC % 0.0 Absolute Neutrophils 9.02 H Absolute Lymphocytes 1.46 Absolute Monocytes 1.06 H Absolute Eosinophils 0.04 Absolute Basophils 0.04 VBG Lactate Sodium 138 Potassium 4.2 Chloride 110 H Carbon Dioxide 23.8 Anion Gap 4.2 BUN 56 H Creatinine 0.9 Est GFR (CKD-EPI 2020) 65.44 Glucose 133 H Calcium 7.5 L Iron 49 L TIBC 178 L Transferrin % Sat 28 Total Bilirubin AST ALT Alkaline Phosphatase Total Protein Albumin Procalcitonin Urine Color Urine Clarity Urine pH Ur Specific [place] Urine Protein Urine Ketones Urine Blood Urine Nitrite Urine Bilirubin Urine Urobilinogen Ur Leukocyte Esterase Urine RBC Urine WBC Ur Epithelial Cells Urine Crystals Urine Bacteria Urine Casts Urine Mucus Urine Other Ur Culture Indicated? Urine Glucose COVID-19 Source SARS-CoV-2 (PCR) Influenza Type A (PCR) Influenza Type B (PCR) RSV (PCR) Patient ABO/Rh Antibody Screen Crossmatch Time Spent with Patient Time Spent with Patient: 25-34 minutes Time was spent: preparing to see the patient(eg.review tests), obtaining and/or reviewing separately otained hiistory, ordering medications,tests, procedures, referring, communicating with other health careers adviser, indepentently interpreting results, counseling the patient and care coordination
--- NOTE | 2023-10-05 12:17 | PT.INNT ---
PT Notes Visit Reasons: Right Hip Fracture Patient med/surg care discontinued due to complications of GI bleed, transferred to ICU. Discussed with Dr Lehman, and will await patient to become stabilized and new order written due to change of status.
[2023-10-05] MEDS: CEFEPIME 2 GM in Normal Saline 100 ML IVPB ×2 (12:45→23:22)
[2023-10-05 13:19] LABS: MRSA PCR Negative (Negative)
[2023-10-05 14:09] LABS: HCT 26.8 % (36.0-46.0); HGB 9.2 g/dL (11.2-15.7)
[2023-10-05] MEDS: Docusate Sodium 100 MG CAP PO (19:48)
[2023-10-05 20:18] LABS: HCT 25.3 % (36.0-46.0); HGB 8.7 g/dL (11.2-15.7)
[2023-10-05] MEDS: Sucralfate 1 GM TAB PO (22:08)
[2023-10-06] VITALS (48 sets, daily range): BP systolic 77–132; BP diastolic 46–86; PULSE 65–98; RESP 10–33; TEMP 36–37; O2SAT 87–96
[2023-10-06 06:03] LABS: Abs Immature Grans 0.07 10^3/uL (0.0-0.06); Absolute Basophil Count 0.05 10^3/uL (0.0-0.2); Absolute Eosinophil Count 0.44 10^3/uL (0.0-0.7); Absolute Lymphocyte Count 2.05 10^3/uL (1.2-3.4); Absolute Monocyte Count 0.86 10^3/uL (0.1-0.8); Absolute Neutrophil Count 5.45 10^3/uL (1.2-6.7); Basophils % 0.6; Eosinophils % 4.9; HCT 26.7 % (36.0-46.0); HGB 8.9 g/dL (11.2-15.7); Immature Grans % 0.8; MCH 30.6 pg (27.0-33.0); MCHC 33.3 % (32.0-36.0); MCV 92 fL (80-95); MPV 10.1 fL (8.0-11.0); Monocytes % 9.6; Neutrophils % 61.1; Platelet Count 183 10^3/uL (130-400); RBC 2.91 10^6/uL (3.93-5.22); RDW 14.1 % (11.7-14.6); WBC 8.92 10^3/uL (4.4-10.8)
[2023-10-06 06:23] LABS: BUN 27 mg/dL (7-18); CREATININE 0.9 mg/dL (0.55-1.02); Calcium 8.1 mg/dL (8.5-10.1); Chloride 110 mmol/L (98-107); Estimated GFR 65.44 (mL/min/1.73m2); Glucose 103 mg/dL (74-106); Potassium 3.9 mmol/L (3.5-5.1); Sodium 144 mmol/L (136-145)
[2023-10-06] MEDS: oxyCODONE 5 MG TAB PO (08:17)
[2023-10-06] MEDS: Docusate Sodium 100 MG CAP PO ×2 (08:18→21:36)
[2023-10-06] MEDS: Metoprolol 25 MG TAB 12.5 MG PO (08:18)
[2023-10-06] MEDS: Pantoprazole 40 MG VIAL IVP ×2 (08:18→21:31)
[2023-10-06] MEDS: Sucralfate 1 GM TAB PO ×4 (08:18→21:32)
[2023-10-06] MEDS: Normal Saline Flush 10 ML SYR IVP ×2 (08:19→21:37)
[2023-10-06] MEDS: ACETAMINOPHEN 1,000 MG/100 ML BTL 400 MG IVPB ×2 (09:37→18:15)
--- NOTE | 2023-10-06 10:00 | W.PM.PROGNOT ---
Date of Service Date of service: 10/06/23 Time of Service: 10:00 Assessment and Plan Assessment and plan (1) Upper GI bleeding: Status: Acute Assessment and plan: It is reassuring that the hgb has stabilized a bit and the lack of upper GI symptoms is certainly a good sign. Hopefully the protonix and sucralfate are sufficient to resolve any GI bleeding. I think it would be ok to restart heparin based VTE prophylaxis if needed, but I would continue to hold ASA based therapies for a few more days. If the pain becomes an issue I suppose a few doses of ketorlac might also be reasonable to try. Subjective Subjective Interval history since last seen: Deedee says that she felt good overnight. Her appetite has increased. She tolerated food without and dyspepsia or abdominal complaints. She had a normal bowel movment without any signs of blood. She says that she is just bit dizzy sitting in the chair. Her hip is a little painful with some movement, but generally her operative pain seems controlled. Exam GI Other: Abdomen is soft and nontender. Objective Last Vital Signs Temp 98.4 F 10/06/23 03:28 Pulse 98 H 10/06/23 08:02 Resp 32 H 10/06/23 08:02 BP 118/48 L 10/06/23 08:02 Pulse Ox 95 10/06/23 07:01 Laboratory Results - last 24 hr 10/05/23 10/05/23 10/05/23 01:45 11:17 14:03 WBC RBC Hgb 9.2 L Hct 26.8 L MCV MCH MCHC RDW Plt Count MPV Immature Gran % Neutrophils % Lymphocytes % Monocytes % Eosinophils % Basophils % Nucleated RBC % Absolute Neutrophils Absolute Lymphocytes Absolute Monocytes Absolute Eosinophils Absolute Basophils Sodium Potassium Chloride Carbon Dioxide Anion Gap BUN Creatinine Est GFR (CKD-EPI 2020) Glucose Calcium Vancomycin Trough MRSA (TEM-PCR) Negative Crossmatch See Detail 10/05/23 10/05/23 10/06/23 19:30 20:04 05:30 WBC 8.92 RBC 2.91 L Hgb 8.7 L 8.9 L Hct 25.3 L 26.7 L MCV 92 MCH 30.6 MCHC 33.3 RDW 14.1 Plt Count 183 MPV 10.1 Immature Gran % 0.8 Neutrophils % 61.1 Lymphocytes % 23.0 Monocytes % 9.6 Eosinophils % 4.9 Basophils % 0.6 Nucleated RBC % 0.0 Absolute Neutrophils 5.45 Absolute Lymphocytes 2.05 Absolute Monocytes 0.86 H Absolute Eosinophils 0.44 Absolute Basophils 0.05 Sodium 144 Potassium 3.9 Chloride 110 H Carbon Dioxide 28.0 Anion Gap 6.0 BUN 27 H Creatinine 0.9 Est GFR (CKD-EPI 2020) 65.44 Glucose 103 Calcium 8.1 L Vancomycin Trough Cancelled MRSA (TEM-PCR) Crossmatch Time Spent with Patient Time Spent with Patient: <25 minutes Time was spent: preparing to see the patient(eg.review tests), counseling the patient and care coordination
[2023-10-06] MEDS: Lactated Ringers 500 ML IV ×2 (10:51→15:46)
--- NOTE | 2023-10-06 11:19 | W.PM.PROGNOT ---
Date of Service Date of service: 10/06/23 Time of Service: 11:19 Assessment and Plan Assessment and plan (1) Upper GI bleeding: Status: Acute Assessment and plan: DDX: Kellie Del Valle tear, PUD, stress induced gastritis/duodenitis Surgical services decided to forego EGD at this time recommends aggressive medical management. I have added Cytotec to her current regimen of Protonix and Carafate. Continue to monitor H&H's and give her Venofer for her anemia. Avoid use of NSAIDs or anticoagulants. If her H&H remained stable over the next 48 hours could consider resumption of Lovenox for DVT prophylaxis with the understanding that there is an increased risk of recurrent GI bleeding. I will let surgical service and orthopedic service discussed Critical care time spent interviewing and examining the patient, reviewing studies, discussing case with patient's nurse and consulting physicians was 35 minutes (2) Intertrochanteric fracture of right hip: Status: Acute Assessment and plan: Increased pain management. Added Voltaren gel to her hip continue program doses of Tylenol 1000 mg 3 times daily. I increased her oxycodone to 10 mg every 4 hours as needed pain. She also has as needed morphine as needed for pain. Qualifiers: Encounter type: initial encounter Fracture type: closed Fracture alignment: displaced Qualified Code(s): S72.141A - Displaced intertrochanteric fracture of right femur, initial encounter for closed fracture (3) Anemia: Status: Chronic Assessment and plan: Patient was transfused 2 units of packed red cells came up to hemoglobin 8.9 g is holding there. Qualifiers: Anemia type: unspecified type Qualified Code(s): D64.9 - Anemia, unspecified (4) DVT prophylaxis: Status: Acute Assessment and plan: SCD and TEDS, no chemoprophylaxis in setting of UGIB (5) Discharge planning issues: Status: Acute Assessment and plan: patient is from [facility] and was visiting here. She will need either home health w/ home P.T. on discharge or transfer to [facility] for SNF. Subjective Subjective Interval history since last seen: Patient w/ no further GI bleeding. No abdominal pain or chest pain or dyspnea. She does experience some lightheadedness. She has had some hypotension this morning. Apparently she did receive her metoprolol 12.5 mg orally this morning but that time her systolic blood pressure was above the parameters. I have since adjusted the parameters. We will withhold her Lopressor for systolic blood pressures less than 120 mm for systolic blood pressure was in the 80s and diastolic was in the 40s. She responded to an IV fluid bolus and is since risen to a level of 105/49 with a MAP of 66.Hemoglobin has been stable since her transfusion. Hemoglobin is up to 8.9 g. We will begin her on venofer therapy. We will watch in the ICU today but if there is no further hypotension and no evidence of bleeding then she can be transferred to the medical/surgical floor later this afternoon. Exam Narrative Exam Narrative: Deedee is sitting up in her chair she is alert and oriented person place time circumstance. She is complaining of right hip pain. She denies any abdominal pain or nausea or vomiting. She does complain of feeling lightheaded. She is requesting to go back to bed. Lungs are clear to auscultation Heart regular rate and rhythm Abdomen soft nondistended nontender Right hip is examined there is no bruising no induration however it is tender to palpation. Objective Last Vital Signs Temp 37.0 C 10/06/23 08:30 Pulse 72 10/06/23 10:01 Resp 16 10/06/23 10:01 BP 84/47 L 10/06/23 10:01 Pulse Ox 95 10/06/23 07:01 Laboratory Results - last 24 hr 10/05/23 10/05/23 10/05/23 01:45 11:17 14:03 WBC RBC Hgb 9.2 L Hct 26.8 L MCV MCH MCHC RDW Plt Count MPV Immature Gran % Neutrophils % Lymphocytes % Monocytes % Eosinophils % Basophils % Nucleated RBC % Absolute Neutrophils Absolute Lymphocytes Absolute Monocytes Absolute Eosinophils Absolute Basophils Sodium Potassium Chloride Carbon Dioxide Anion Gap BUN Creatinine Est GFR (CKD-EPI 2020) Glucose Calcium Vancomycin Trough MRSA (TEM-PCR) Negative Crossmatch See Detail 10/05/23 10/05/23 10/06/23 19:30 20:04 05:30 WBC 8.92 RBC 2.91 L Hgb 8.7 L 8.9 L Hct 25.3 L 26.7 L MCV 92 MCH 30.6 MCHC 33.3 RDW 14.1 Plt Count 183 MPV 10.1 Immature Gran % 0.8 Neutrophils % 61.1 Lymphocytes % 23.0 Monocytes % 9.6 Eosinophils % 4.9 Basophils % 0.6 Nucleated RBC % 0.0 Absolute Neutrophils 5.45 Absolute Lymphocytes 2.05 Absolute Monocytes 0.86 H Absolute Eosinophils 0.44 Absolute Basophils 0.05 Sodium 144 Potassium 3.9 Chloride 110 H Carbon Dioxide 28.0 Anion Gap 6.0 BUN 27 H Creatinine 0.9 Est GFR (CKD-EPI 2020) 65.44 Glucose 103 Calcium 8.1 L Vancomycin Trough Cancelled MRSA (TEM-PCR) Crossmatch Time Spent with Patient Time Spent with Patient: 25-34 minutes Time was spent: preparing to see the patient(eg.review tests), ordering medications,tests, procedures, referring, communicating with other health healthcare receptionist (Dr. Healy and Dr. Andi Love), indepentently interpreting results, counseling the patient and care coordination
[2023-10-06] MEDS: oxyCODONE 10 MG TAB PO (11:51)
[2023-10-06] MEDS: Ondansetron 4 MG/2 ML VIAL IVP ×2 (12:55→21:31)
[2023-10-06 13:33] LABS: HCT 25.9 % (36.0-46.0); HGB 8.6 g/dL (11.2-15.7)
[2023-10-06] MEDS: Polyethylene Glycol 3350 17 GM PACKET PO (14:25)
[2023-10-06] MEDS: ERTAPENEM 1 GM in Normal Saline 50 ML IVPB (14:27)
[2023-10-06 14:40] LABS: Lab Add On Test DONE
[2023-10-06 15:14] LABS: Ferritin 122 ng/mL (8-252)
--- NOTE | 2023-10-06 16:28 | PGE_ITS ---
Date of Service Date of service: 10/06/23 Time of Service: 16:28 Assessment and Plan Assessment and plan (1) Intertrochanteric fracture of right hip: Status: Acute Assessment and plan: 78-year-old female postop day #3 status post right Hip IMN Brief update note I, patient overall feeling improved, but nauseous after possibly overeating at lunch. No vomiting or feeling like the other night when she had upper GI bleed. Happy to be out of bed during the day, but disappointed unable to participate in physical therapy today. Deep hip discomfort after being seated for a while, otherwise doing okay. Denies any other complaints or problems headache, chest pain, shortness of breath. Right hip dressings clean, dry, and intact. No erythema or signs of infection. No thigh, knee, leg ecchymosis. No notable thigh or right lower extremity edema. All thigh compartments soft. Bilateral calf soft, nontender. No signs of bleeding or blood clot. Demonstrates strong ankle dorsiflexion, plantarflexion, and EHL. Sensation intact throughout the right lower extremity without paresthesias. 2+ dorsalis pedis pulse. Warm and well-perfused throughout. Able to demonstrate strong knee extension, heel raise, but unable to actively straight leg raise on her own. Tolerates gentle passive moderate range of motion about the hip and knee without much difficulty. Discussed with Dr. Love and Dr. Hogan?no signs or symptoms of concerning bleeding about the hip or thigh. Acute blood loss likely from upper GI bleed. Avoid NSAIDs and aspirin. Hold chemical DVT prophylaxis pending repeat hemoglobin, hopefully resume tomorrow 24 hours after bleeding event, continue bilateral SCDs and TEDs. Continue Mojica for monitoring of ins and outs. Recommend resuming physical therapy even if seated or in bed tomorrow, advancing as best possible, and discharge planning when appropriate. Call/message me with any questions or concerns about this patient Postoperative instructions? Surgery 10/03/2023 Right hip intramedullary nailing Activity: Weightbearing as tolerated with assist device Prescriptions: Pain medication and 30 days DVT prophylaxis Dressings: Leave dressings in place for 5 days. May then remove and leave open to air or cover incisions with Band-Aids. May shower after 7 days. Follow-up: 10-14 days with local orthopedic surgeon in [place], [place] (my office will send referral on Saturday) Qualifiers: Encounter type: initial encounter Fracture type: closed Fracture alignment: displaced Qualified Code(s): S72.141A - Displaced intertrochanteric fracture of right femur, initial encounter for closed fracture Objective Last Vital Signs Temp 98.2 F 10/06/23 12:05 Pulse 73 10/06/23 16:00 Resp 21 10/06/23 16:00 BP 106/55 L 10/06/23 16:00 Pulse Ox 95 10/06/23 07:01 Laboratory Results - last 24 hr 10/05/23 10/06/23 10/06/23 20:04 05:30 13:16 WBC 8.92 RBC 2.91 L Hgb 8.7 L 8.9 L 8.6 L Hct 25.3 L 26.7 L 25.9 L MCV 92 MCH 30.6 MCHC 33.3 RDW 14.1 Plt Count 183 MPV 10.1 Immature Gran % 0.8 Neutrophils % 61.1 Lymphocytes % 23.0 Monocytes % 9.6 Eosinophils % 4.9 Basophils % 0.6 Nucleated RBC % 0.0 Absolute Neutrophils 5.45 Absolute Lymphocytes 2.05 Absolute Monocytes 0.86 H Absolute Eosinophils 0.44 Absolute Basophils 0.05 Sodium 144 Potassium 3.9 Chloride 110 H Carbon Dioxide 28.0 Anion Gap 6.0 BUN 27 H Creatinine 0.9 Est GFR (CKD-EPI 2020) 65.44 Glucose 103 Calcium 8.1 L Ferritin 122 Add-On Test Request 10/06/23 14:39 WBC RBC Hgb Hct MCV MCH MCHC RDW Plt Count MPV Immature Gran % Neutrophils % Lymphocytes % Monocytes % Eosinophils % Basophils % Nucleated RBC % Absolute Neutrophils Absolute Lymphocytes Absolute Monocytes Absolute Eosinophils Absolute Basophils Sodium Potassium Chloride Carbon Dioxide Anion Gap BUN Creatinine Est GFR (CKD-EPI 2020) Glucose Calcium Ferritin Add-On Test Request DONE Time Spent with Patient Time Spent with Patient: <25 minutes Time was spent: preparing to see the patient(eg.review tests), ordering medications,tests, procedures, referring, communicating with other health animal care worker and counseling the patient
[2023-10-06] MEDS: IRON SUCROSE COMPLEX 400 MG in Normal Saline 250 ML 100 MG IVPB (16:29)
[2023-10-06] MEDS: miSOPROStol 100 MCG TAB PO ×2 (16:30→21:36)
[2023-10-06 17:55] LABS: HCT 26.1 % (36.0-46.0); HGB 8.7 g/dL (11.2-15.7)
[2023-10-06] MEDS: Metoclopramide 10 MG/2 ML VIAL IVP (21:31)
[2023-10-06] MEDS: diphenhydrAMINE 25 MG CAP PO (21:32)
[2023-10-06] MEDS: Senna TAB 1 TAB PO (21:36)
[2023-10-06] MEDS: Diclofenac 1% Gel 100 GM TUBE TP (21:36)
[2023-10-06 22:20] LABS: HCT 28.6 % (36.0-46.0); HGB 9.5 g/dL (11.2-15.7)
[2023-10-07] VITALS (76 sets, daily range): BP systolic 82–134; BP diastolic 49–79; PULSE 82–122; RESP 11–27; TEMP 36.9–37.9; O2SAT 88–96
[2023-10-07] MEDS: ACETAMINOPHEN 1,000 MG/100 ML BTL 400 MG IVPB ×3 (03:05→19:00)
[2023-10-07 07:05] LABS: Abs Immature Grans 0.17 10^3/uL (0.0-0.06); Absolute Basophil Count 0.06 10^3/uL (0.0-0.2); Absolute Eosinophil Count 0.42 10^3/uL (0.0-0.7); Absolute Lymphocyte Count 2.27 10^3/uL (1.2-3.4); Absolute Neutrophil Count 5.48 10^3/uL (1.2-6.7); Basophils % 0.6; Eosinophils % 4.5; HCT 27.8 % (36.0-46.0); HGB 9.3 g/dL (11.2-15.7); Immature Grans % 1.8; Lymphocytes % 24.4; MCH 30.6 pg (27.0-33.0); MCHC 33.5 % (32.0-36.0); MCV 91 fL (80-95); Monocytes % 9.7; Platelet Count 214 10^3/uL (130-400); RBC 3.04 10^6/uL (3.93-5.22); RDW 13.8 % (11.7-14.6); RDW-SD 45.2 fL
[2023-10-07] MEDS: Sucralfate 1 GM TAB PO ×3 (07:21→16:44)
[2023-10-07 07:32] LABS: ALT 15 U/L (14-59); AST 24 U/L (15-37); Alkaline Phosphatase 53 U/L (46-116); Anion Gap 6.7 mmol/L (3-11); BUN 17 mg/dL (7-18); CO2 27.3 mmol/L (21.0-32.0); CREATININE 0.8 mg/dL (0.55-1.02); Calcium 8.5 mg/dL (8.5-10.1); Chloride 107 mmol/L (98-107); Estimated GFR 75.37 (mL/min/1.73m2); Glucose 107 mg/dL (74-106); Potassium 3.8 mmol/L (3.5-5.1); Sodium 141 mmol/L (136-145)
[2023-10-07 07:40] LABS: Procalcitonin 0.1 ng/mL
--- NOTE | 2023-10-07 08:16 | W.PM.PROGNOT ---
Date of Service Date of service: 10/07/23 Time of Service: 08:16 Assessment and Plan Assessment and plan (1) Intertrochanteric fracture of right hip: Status: Acute Assessment and plan: 78-year-old female postop day #4 status post right Hip IMN Brief update?hemoglobin trend and vital signs reassuring. See previous notes for details on GI bleed. Low-grade temperature could be from atelectasis. Encourage IS, out of bed, and monitor for additional fever or signs of DVT/PE. Resume physical therapy today. Care per primary hospitalist team. Discharge when medically appropriate. Call/message me with any questions or concerns about this patient. Postoperative instructions? Surgery 10/03/2023 Right hip intramedullary nailing Activity: Weightbearing as tolerated with assist device Prescriptions: Pain medication and 30 days DVT prophylaxis Dressings: Leave dressings in place for 5 days. May then remove and leave open to air or cover incisions with Band-Aids. May shower after 7 days. Follow-up: 10-14 days with local orthopedic surgeon in [place], [place] (my office will send referral on Saturday) Qualifiers: Encounter type: initial encounter Fracture type: closed Fracture alignment: displaced Qualified Code(s): S72.141A - Displaced intertrochanteric fracture of right femur, initial encounter for closed fracture Objective Last Vital Signs Temp 100.2 F H 10/07/23 06:05 Pulse 102 H 10/07/23 06:00 Resp 15 10/07/23 06:00 BP 99/79 L 10/07/23 06:00 Pulse Ox 93 10/07/23 05:50 Laboratory Results - last 24 hr 10/06/23 10/06/23 10/06/23 05:30 13:16 14:39 WBC RBC Hgb 8.6 L Hct 25.9 L MCV MCH MCHC RDW Plt Count MPV Immature Gran % Neutrophils % Lymphocytes % Monocytes % Eosinophils % Basophils % Nucleated RBC % Absolute Neutrophils Absolute Lymphocytes Absolute Monocytes Absolute Eosinophils Absolute Basophils Sodium Potassium Chloride Carbon Dioxide Anion Gap BUN Creatinine Est GFR (CKD-EPI 2020) Glucose Calcium Ferritin 122 Total Bilirubin AST ALT Alkaline Phosphatase Total Protein Albumin Procalcitonin Add-On Test Request DONE 10/06/23 10/06/23 10/07/23 17:48 22:03 05:50 WBC 9.30 RBC 3.04 L Hgb 8.7 L 9.5 L 9.3 L Hct 26.1 L 28.6 L 27.8 L MCV 91 MCH 30.6 MCHC 33.5 RDW 13.8 Plt Count 214 MPV 10.0 Immature Gran % 1.8 Neutrophils % 59.0 Lymphocytes % 24.4 Monocytes % 9.7 Eosinophils % 4.5 Basophils % 0.6 Nucleated RBC % 0.0 Absolute Neutrophils 5.48 Absolute Lymphocytes 2.27 Absolute Monocytes 0.90 H Absolute Eosinophils 0.42 Absolute Basophils 0.06 Sodium 141 Potassium 3.8 Chloride 107 Carbon Dioxide 27.3 Anion Gap 6.7 BUN 17 Creatinine 0.8 Est GFR (CKD-EPI 2020) 75.37 Glucose 107 H Calcium 8.5 Ferritin Total Bilirubin 1.0 AST 24 ALT 15 Alkaline Phosphatase 53 Total Protein 5.0 L Albumin 2.0 L Procalcitonin 0.1 Add-On Test Request Time Spent with Patient Time Spent with Patient: <25 minutes Time was spent: indepentently interpreting results
[2023-10-07] MEDS: Polyethylene Glycol 3350 17 GM PACKET PO (08:36)
[2023-10-07] MEDS: Pantoprazole 40 MG VIAL IVP ×2 (08:36→19:37)
[2023-10-07] MEDS: miSOPROStol 100 MCG TAB PO ×4 (08:37→19:37)
[2023-10-07] MEDS: oxyCODONE 10 MG TAB PO ×3 (08:37→19:55)
--- NOTE | 2023-10-07 09:05 | PT.INIE ---
PT Notes Visit Reasons: Right Hip Fracture Physical Therapy Inpatient Initial Evaluation Date: 10/07/2023 Referring Doctor: Dr. Lehman PT Orders: PT CONSULT: extended stay, weakness Precautions: Fall. Standard. WBAT on right LE with AD. Patient Profile/Admitting Diagnosis: Deedee is a 78-year-old female who sustained a medially displaced and rotated right intertrochanteric fracture from a fall and is status post right intramedullary nailing on 10/03/23. Her post op course was complicated by a GI bleed and UTI, in addition to anemia requiring transfusion. PT was placed on hold on 10/05/23, and new referral received for resumption of services on 10/06/23. Social History/Home Situation: Lives with in a private home with 3 steps to enter leading onto a ladning and then another 1 step to house entrance. Recently came home from rehab of L hip from a SNF. Equipment Owned/DME: None Subjective: Deedee states that she has been quite dizzy since getting up to chair. She met with Dr. Healy yesterday, and reports that he encouraged her to work on moving the hip and walking more. 6/10 pain in the R hip. Received pain meds just prior to PT session Objective: General Observation: Sitting up in chair. and nursing present in room upon PT arrival. Monitored on telemetry, and Mojica catheter in place. IV in RUE. Mental Status: Alert and oriented as to person, place, time, and purpose. Able to pay attention, focus, and respond appropriately. Pain: As above Vital Signs: monitored by nursing ROM: Right Lower Extremity: Right knee motion WFL. Hip flexion allows 95*. AB to 20* functionally. Ankle motion WFL. Left Lower Extremity: Left knee motion WFL. Hip flexion allows 95*. AB to 20* functionally. Ankle motion WFL. UEs: ROM WFL for shoulders, elbows and wrists bilat. Strength: Right Lower Extremity: Hip flexors 3-/5. Hip abductors 3-/5. Knee flexors 3-/5. Knee extensors 3/5. Ankle dorsiflexors 5/5. Ankle plantarflexors 4-/5. Left Lower Extremity: Hip flexors 4/5. Hip abductors 3-/5. Knee flexors 3/5. Knee extensors 4+/5. Ankle dorsiflexors 5/5. Ankle plantarflexors 4-/5. Bed Mobility/Transfers: Minimal cues provided for hand placement, movement sequence, and AD management to minimize pain and reduce fall risk Sit to stand: CGA initially; min A on second attempt after walking, with patient quite fatigued and dizzy Stand to sit: CGA and cues for technique sit-supine: max A to LEs bed mobility: mod A for LE placement, then able to incrementally scoot in bed with increased time to perform Gait: Ambulates 10' with FWW, slow, shuffling gait with poor foot clearance bilat. Reports increasing dizziness, but no signs of instability or ataxia. Balance: Static Sitting: Normal Dynamic Sitting: Normal Static Standing: Fair Dynamic Standing: Fair Special Tests: Mobility Limitations Standardized Measure [facility] AM-PAC 6 clicks Basic Mobility Inpatient Short Form: Raw Score: 16 CMS Score: 54% deficit Informed Consent/Education: Patient was instructed in purpose of PT consult and plan of care. Agreeable to proceed with established PT POC to achieve personal goals. ASSESSMENT Deedee is now 4 days s/p IM nailing for right intertrochanteric hip fx. Her post op course was complicated by a GI bleed and UTI, in addition to anemia requiring transfusion. PT was placed on hold on 10/05/23, and new referral received for resumption of services on 10/06/23. Although she remains dizzy with gait and transfers, she is demonstrating improved tolerance and safety. She requires skilled PT intervention to maximize mobility and allow for safe transition back to community once medically stable. May require brief SNF stay due to complicated post-op course. Patient presents with clinical signs and symptoms consistent with current/admitting diagnoses that have resulted to mobility limitations, gait instability, generalized weakness, and overall ADL decline as demonstrated by the following impairment level findings: 1. Decreased strength to B LE major muscle groups 2. Impaired sitting/standing balance 3. Impaired activity tolerance 4. Limitation of ROM bilat LEs 5. Orthostatic hypotension 6. pain 6/10 at rest Impairments are contributing to the following functional limitations: 1. Decline in bed mobility skills 2. Decline in transfer skills 3. Difficulty with ambulation without assistive device and physical assistance 4. Increased completion time for mobility ADL performance 5. Increased risk for falls 6. Unablet to manage steps alone safely Patient is assessed as a 03400 moderate complexity based on the following: History: 78-year-old female with past medical history as indicated above Examination: Demonstrable impairment in strength, balance, and mobility level with underlying impairments and functional limitations as exhibited above as well as deficit score of 54% utilizing the [facility] Mobility Inpatient Short Form Presentation: Evolving Decision Makin moderate complexity Goals: Goals X1 week 1. Supine-Sit independent 2. Sit-Supine independent 3. Sit-Stand independent 4. Stand-Sit independent with FWW 5. Bed-Chair independent with FWW 6. Chair-Bed independent with FWW 7. Independent gait on level surface with use of FWW for at least 300 feet without report of pain nor dyspnea 8. Independent stair negotiation while holding onto B rails for at least 5 steps without report of pain nor dyspnea 9. Independent with home exercise program 10. Good static and dynamic standing balance/tolerance Plan of Care/Treatment Plan: 1-2x/day, 7 days/week x 1 week. Plan of care has been reviewed with the [employer] providing the service under Physical Therapy direction. Initiate Physical Therapy intervention for pain management as needed, strengthening, bed mobility, transfers, gait, stairs, balance training, and use of assistive device. Closely monitor BP during session. Pre-medicate for pain. DISCHARGE RECOMMENDATIONS: [] Home with no services [] [] Home with services [specify [] Home with outpatient PT [] [] SNF for continued rehabilitation [] [] Strap Making Machine Operator Care [] [] SNF versus LTC based on ability to participate and progress [] [X] PT vs. SNF based on progress towards goals TREATMENT CODE/TIME: 79379 x 20 minutes beginning at 08:45 - 09:05 Thank you for the opportunity to participate in the care of this patient. Zohreh Goode PT, DPT [facility] All Active Problems Upper GI bleeding (Acute) Anemia (Chronic) Intertrochanteric fracture of right hip (Acute 10/02/23) Discharge planning issues (Acute) DVT prophylaxis (Acute) Medical History Osteoporosis Hypertension Surgical History S/P vertebroplasty Status post-operative repair of closed fracture of left hip
[2023-10-07] MEDS: Cosyntropin 0.25 MG VIAL IVP (10:06)
[2023-10-07] MEDS: Metoprolol 5 MG/5 ML VIAL IVP (10:11)
--- NOTE | 2023-10-07 10:11 | W.PM.PROGNOT ---
Date of Service Date of service: 10/07/23 Time of Service: 10:12 Assessment and Plan Assessment and plan (1) Systolic anterior movement of mitral valve: Status: Acute Assessment and plan: patient has echocardiographic evidence of systolic anterior motion of her anterior mitral valve leaflet causing a dynamic obstruction of her LVOT. treatment is volume and rate control. Goal will be for resting HR under 80 and under 100 w/ activity. Critical care time spent interviewing and examining the patient, reviewing studies, discussing case with patient's nurse and consulting physicians was 45 minutes (2) Sinus tachycardia: Status: Acute Assessment and plan: resume metoprolol; I have discontinued her hold on her metoprolol and removed her BP parameters. (3) Upper GI bleeding: Status: Acute Assessment and plan: DDX: Kellie Del Valle tear, PUD, stress induced gastritis/duodenitis Surgical service has decided to forego EGD. Patient is now medically treated with Protonix Cytotec and Carafate. Hemoglobin is stable there is no been no further bleeding. Now we need to control her tachycardia and hypotension. (4) Intertrochanteric fracture of right hip: Status: Acute Assessment and plan: Pain improved with current regimen of oxycodone and Tylenol and Voltaren gel. Continue with physical therapy as per Dr. Healy's instructions. Qualifiers: Encounter type: initial encounter Fracture type: closed Fracture alignment: displaced Qualified Code(s): S72.141A - Displaced intertrochanteric fracture of right femur, initial encounter for closed fracture (5) Anemia: Status: Chronic Assessment and plan: Status post transfusion 2 units of packed cells currently stable continue iron therapy Qualifiers: Anemia type: unspecified type Qualified Code(s): D64.9 - Anemia, unspecified (6) DVT prophylaxis: Status: Acute Assessment and plan: SCD and TEDS, no chemoprophylaxis in setting of UGIB (7) Discharge planning issues: Status: Acute Assessment and plan: patient is from [facility] and was visiting here. She will need either home health w/ home P.T. on discharge or transfer to [facility] for SNF. Subjective Subjective Interval history since last seen: Patient's had no further hematemesis no melanotic stools. Surgical services not planning to perform EGD. However patient has had recurrent hypotension. Hemoglobin remained stable at 9.3 g. Chemistry panel was unremarkable. We are performing a cosyntropin stimulation test to assess for adrenal insufficiency. Patient is anxious she feels that her blood pressure issues and her stomach issues are related to her anxiety. She feels if she just gets out of the hospital that her anxiety will calm down. I explained her that she probably had a bleeding ulcer we need to be sure that there is no further blood loss and we need to get her blood pressure under control before she can be discharged. It is unclear as to the source of her hypotension were working up for adrenal insufficiency I will repeat her POCUS exam this morning Exam Narrative Exam Narrative: Anxious older female alert and oriented to person place time circumstance lying in bed. She was hypotensive when she was out of bed with systolic pressures in the low 80s. Lungs are clear to auscultation Heart is tachycardic no appreciable murmur rub Abdomen soft nontender normal bowel sounds Right hip no bruising she has much improved range of motion without reduction of pain. She has normal pedal pulses and normal strength in her lower legs. Objective Last Vital Signs Temp 37.9 C H 10/07/23 08:00 Pulse 108 H 10/07/23 09:24 Resp 15 10/07/23 08:05 BP 120/68 10/07/23 09:24 Pulse Ox 93 10/07/23 05:50 Laboratory Results - last 24 hr 10/06/23 10/06/23 10/06/23 05:30 13:16 14:39 WBC RBC Hgb 8.6 L Hct 25.9 L MCV MCH MCHC RDW Plt Count MPV Immature Gran % Neutrophils % Lymphocytes % Monocytes % Eosinophils % Basophils % Nucleated RBC % Absolute Neutrophils Absolute Lymphocytes Absolute Monocytes Absolute Eosinophils Absolute Basophils Sodium Potassium Chloride Carbon Dioxide Anion Gap BUN Creatinine Est GFR (CKD-EPI 2020) Glucose Calcium Ferritin 122 Total Bilirubin AST ALT Alkaline Phosphatase Total Protein Albumin Procalcitonin Add-On Test Request DONE 10/06/23 10/06/23 10/07/23 17:48 22:03 05:50 WBC 9.30 RBC 3.04 L Hgb 8.7 L 9.5 L 9.3 L Hct 26.1 L 28.6 L 27.8 L MCV 91 MCH 30.6 MCHC 33.5 RDW 13.8 Plt Count 214 MPV 10.0 Immature Gran % 1.8 Neutrophils % 59.0 Lymphocytes % 24.4 Monocytes % 9.7 Eosinophils % 4.5 Basophils % 0.6 Nucleated RBC % 0.0 Absolute Neutrophils 5.48 Absolute Lymphocytes 2.27 Absolute Monocytes 0.90 H Absolute Eosinophils 0.42 Absolute Basophils 0.06 Sodium 141 Potassium 3.8 Chloride 107 Carbon Dioxide 27.3 Anion Gap 6.7 BUN 17 Creatinine 0.8 Est GFR (CKD-EPI 2020) 75.37 Glucose 107 H Calcium 8.5 Ferritin Total Bilirubin 1.0 AST 24 ALT 15 Alkaline Phosphatase 53 Total Protein 5.0 L Albumin 2.0 L Procalcitonin 0.1 Add-On Test Request Time Spent with Patient Time Spent with Patient: 35-49 minutes Time was spent: preparing to see the patient(eg.review tests), ordering medications,tests, procedures, referring, communicating with other health health care manager (nursing and Dr. Healy), indepentently interpreting results, counseling the patient (and patient's ) and care coordination
[2023-10-07] MEDS: Docusate Sodium 100 MG CAP PO ×2 (10:30→19:37)
[2023-10-07] MEDS: Lactated Ringers 500 ML IV (10:33)
--- NOTE | 2023-10-07 10:33 | W.POCUS ---
Pocus Exam Limited Cardiac Exam DATE OF EXAM: 10/07/23 TIME OF EXAM: 09:39 PROVIDER THAT PERFORMED THE STUDY: Antione Lehman IS THIS A REPEAT EXAM DURING THIS ENCOUNTER: no REASON FOR EXAM: Hypotension VISUALIZED STRUCTURES: left atrium, left ventricle, LVOT, right ventricle, aortic valve, mitral valve, Interventricular septum and IVC VIEW OBTAINED: Parasternal long-axis, Parasternal short-axis and Subxiphoid PERTINENT FINDINGS/IMPRESSION: IVC inspiratory collapsability; No LV dysfunction, No pericardial effusion, No plethoric IVC, No RV dilation and No RV dysfunction INCIDENTAL FINDINGS: Echocardiogram demonstrated systolic anterior motion of the anterior mitral valve leaflet causing dynamic obstruction of her LVOT Exam complete
[2023-10-07] MEDS: Metoprolol 12.5 MG TAB PO ×2 (11:58→19:37)
[2023-10-07] MEDS: Diclofenac 1% Gel 100 GM TUBE TP ×2 (11:58→14:15)
[2023-10-07] MEDS: IRON SUCROSE COMPLEX 400 MG in Normal Saline 250 ML 100 MG IVPB (13:03)
--- NOTE | 2023-10-07 14:34 | PT.INTREAT ---
Date of service: 10/07/23 Time of Service: 13:46 PT Notes Visit Reasons: Right Hip Fracture Inpatient Physical Therapy Treatment Note [facility] Date: 10/07/23 PRECAUTIONS: Fall, standard, activity as tolerated. PREMEDICATE FOR PAIN BEFORE THERAPY. SUBJECTIVE: Patient reports that she is waiting for someone from physical therapy. OBJECTIVE: IV in LUE, telemetry in place, Mojica in place. Patient sitting up in chair. Agreeable to therapy. RASHEED Mortensen also present, providing assist with telemetry, IV, and wheelchair follow. ? PAIN: Patient reports pain is well controlled, as she took pain medicine approximately an hour ago. VITALS: closely monitored by nursing staff via telemetry.? ? ? BED MOBILITY/TRANSFERS? Rolling L/R: not assessed Supine-sit: not assessed? Sit-supine: min assist to get right leg elevated into bed. ? Sit-stand: CGA-min assist from low surface.?No verbal cue needed - patient naturally pushes up from sitting surface. ? Stand-sit: CGA? Bed-Chair: CGA? Chair-bed: CGA ? Therapeutic Exercises ([id number]): Direct one-on-one instruction in therapeutic exercises to develop strength, endurance, range of motion and flexibility. Ambulation ? Assistive Device: FWW? Weight bearing: full Assist: CGA, wheelchair follow, assist managing IV pole and Mojica catheter. ? Distance:?125 feet with 2 seated rests ? Deviation: Slow roshan, reduced stride length, step-to pattern with left leg leading. C/o pain in hands intermittently as she is putting a lot of pressure through them. ? Provided skilled instruction in proper exercise performance Provided skilled manual cues to facilitate proper muscle recruitment and/or form. ASSESSMENT:? Patient tolerates therapy well, reports fatigue at close of session, no SOB, no LOB, no increase in pain reported. PLAN: Continue global strengthening per plan of care until patient is medically cleared for discharge. TREATMENT CODE/TIME: 36 minutes beginning at 13:46
[2023-10-07] MEDS: ERTAPENEM 1 GM in Normal Saline 50 ML IVPB (16:21)
--- NOTE | 2023-10-07 16:58 | PDOC.CMPRO ---
Date of service: 10/07/23 Time of Service: 16:58 Care Management Progress Note Progress Note Text Progress Note Text: Deedee will return home when ready per MD with new home health orders to be coordinated through in [facility]#[phone]. [facility], H&P and PT notes faxed, CM called and notified of pending orders. Agency reported services delayed until early next week. Need to determine PCP and transportation; CM asked provider if patient would require EMS d/t new hip fix and length of transport, extended transport sitting up in a chair may be difficult; awaiting determination. CM continues to follow.
[2023-10-07 18:26] LABS: Cortisol (Baseline) 27 ug/dL (4-23)
[2023-10-07] MEDS: Normal Saline Flush 10 ML SYR IVP (19:36)
[2023-10-08] VITALS (24 sets, daily range): BP systolic 91–138; BP diastolic 51–104; PULSE 75–130; RESP 13–31; TEMP 36.8–37.3; O2SAT 90–95
[2023-10-08] MEDS: ACETAMINOPHEN 1,000 MG/100 ML BTL 400 MG IVPB ×2 (02:17→09:45)
[2023-10-08] MEDS: Metoprolol 12.5 MG TAB PO (05:47)
[2023-10-08 07:02] LABS: Abs Immature Grans 0.32 10^3/uL (0.0-0.06); Absolute Basophil Count 0.06 10^3/uL (0.0-0.2); Absolute Eosinophil Count 0.22 10^3/uL (0.0-0.7); Absolute Monocyte Count 0.86 10^3/uL (0.1-0.8); Absolute Neutrophil Count 5.28 10^3/uL (1.2-6.7); Basophils % 0.7; Eosinophils % 2.5; HCT 26.8 % (36.0-46.0); HGB 8.9 g/dL (11.2-15.7); Immature Grans % 3.6; Lymphocytes % 24.6; MCH 30.8 pg (27.0-33.0); MCHC 33.2 % (32.0-36.0); MCV 93 fL (80-95); MPV 9.7 fL (8.0-11.0); Monocytes % 9.6; Platelet Count 243 10^3/uL (130-400); RBC 2.89 10^6/uL (3.93-5.22); RDW 14.4 % (11.7-14.6); RDW-SD 47.3 fL; WBC 8.94 10^3/uL (4.4-10.8)
[2023-10-08 07:24] LABS: Anion Gap 6.5 mmol/L (3-11); BUN 16 mg/dL (7-18); CO2 29.5 mmol/L (21.0-32.0); CREATININE 0.8 mg/dL (0.55-1.02); Calcium 8.4 mg/dL (8.5-10.1); Chloride 107 mmol/L (98-107); Estimated GFR 75.37 (mL/min/1.73m2); Glucose 105 mg/dL (74-106); Potassium 3.1 mmol/L (3.5-5.1); Sodium 143 mmol/L (136-145)
[2023-10-08] MEDS: Sucralfate 1 GM TAB PO ×3 (07:35→16:37)
[2023-10-08] MEDS: Normal Saline Flush 10 ML SYR IVP (08:00)
[2023-10-08] MEDS: Pantoprazole 40 MG VIAL IVP (08:01)
[2023-10-08] MEDS: oxyCODONE 10 MG TAB PO (08:01)
[2023-10-08] MEDS: miSOPROStol 100 MCG TAB PO ×4 (08:01→19:26)
[2023-10-08] MEDS: Docusate Sodium 100 MG CAP PO ×2 (08:02→19:26)
[2023-10-08] MEDS: Polyethylene Glycol 3350 17 GM PACKET PO (08:02)
--- NOTE | 2023-10-08 08:51 | DI.RAD_ITS ---
Exam(s) XR HIP RT AP LAT ONLY EXAM: XR HIP RT AP LAT ONLY CLINICAL HISTORY: postop RT hip fracture. TECHNIQUE: 2D digital imaging was performed. COMPARISON: CR,XR XR PELVIS AP from 10/02/2023 CR,XR XR FEMUR RT from 10/02/2023 XA XR HIP RT IN OR from 10/03/2023 FINDINGS: Two views. There has been interval ORIF of right hip intertrochanteric fracture, including avulsion of the lesse r trochanter which is again noted medially. There has been mild settling/impaction at the intertroch anteric fracture line when compared to the intraoperative images of 10/03/2023. IMPRESSION: Mild change when compared to 10/03/23, as described above. DATA REPOSITORY: RADIATION DOSE DELIVERED:
[2023-10-08] MEDS: Diclofenac 1% Gel 100 GM TUBE TP ×2 (09:46→14:31)
[2023-10-08 10:46] LABS: Helicobacter pylori Ag, Feces Negative (Negative)
--- NOTE | 2023-10-08 11:11 | PT.INTREAT ---
Date of service: 10/08/23 Time of Service: 09:18 PT Notes Visit Reasons: Right Hip Fracture Inpatient Physical Therapy Treatment Note [facility] Date: 10/08/23 PRECAUTIONS: Fall, standard, activity as tolerated. SUBJECTIVE: Patient reports feeling ok, pain is minimal. Eager to participate in therapy. AFTERNOON: Patient reports that she has been unable to get in and out of bed on her own. OBJECTIVE: Sitting up in chair. present. Agreeable to therapy. AFTERNOON: Supine in bed, playing cards with . Agreeable to therapy. ? PAIN: Minimal at start of treatment, increases mildly with ambulation. VITALS: closely monitored by nursing staff via telemetry.? Therapeutic Activities ([id number]): Direct one-on-one instruction in dynamic activities to improve functional performance. ? BED MOBILITY/TRANSFERS? Rolling L/R: independent Supine-sit: min assist? AFTERNOON: Independent, but patient is frustrated at how slow it is and how much effort it takes to inch her LLE over the side of the bed. Issued patient a leg laboratory mechanical technician. This improves patient's comfort and performance. ? Sit-supine: min assist to elevate legs into bed. AFTERNOON: Instructed patient on use of leg laboratory mechanical technician, practice x3 with each looking better than the previous one. ? Sit-stand: independent?from chair. AFTERNOON: Patient reports she has been unable to stand independently from bed. Reports that the walker slides around unless she has someone to hold it for her. Instructed patient on limb placement and movement sequence, after which patient is able to perform independently. ? Stand-sit: independent ? Bed-Chair: SBA ? Chair-bed: SBA Gait Training ([id number]): Direct one-on-one instruction and skilled instruction in: [x] employing an assistive device [] modified weight-bearing status [x] movement sequencing [] turning and movement with proper form [x] Provided verbal cues for equipment management and technique [x] Provided instruction in gait pattern [] Patient education regarding pacing and breathing techniques to maximize activity tolerance? GAIT? Assistive Device: FWW? Weight bearing: full Assist: SBA? Distance:? 50 feet ? Deviation: step to gait pattern with right leg leading, reduced step length, adequate step height. Talks through gait pattern under her breath while she walks. Verbal cues to allow automaticity of gait. ? STAIRS: ascends and descends 3 four inch stairs with bilateral hand rails (patient reports that her stairs at home are too wide, she won't be able to reach both handrails) with SBA and assist managing telemetry and Mojica tethers. Requires visual and verbal coaching on gait sequence on stairs, both without and with a cane as this is how she will do stairs at home. Experienced too much fatigue to attempt stairs with cane this AM. Requested a wheelchair ride back to her room. ? ASSESSMENT:? Patient tolerates therapy well, although she does become quite fatigued. AFTERNOON: Patient and report that patient will not be able to manage at home just yet, and that will not be able to provide her the support that she will need as he is also in rehab. Patient will need to be totally independent with all aspects before returning home. PLAN: Continue global strengthening per plan of care until patient is medically cleared for discharge. TREATMENT CODE/TIME: 32 minutes beginning at 9:18 and 29 minutes beginning at 15:38 for a total of 61 minutes today.
--- NOTE | 2023-10-08 16:15 | PGE_ITS ---
Date of Service Date of service: 10/08/23 Time of Service: 16:15 Assessment and Plan Assessment and plan (1) Systolic anterior movement of mitral valve: Status: Acute Assessment and plan: -echocardiographic evidence of systolic anterior motion of her anterior mitral valve leaflet causing a dynamic obstruction of her LVOT. -treatment is volume and rate control. -Goal will be for resting HR under 80 and under 100 w/ activity. (2) Sinus tachycardia: Status: Acute Assessment and plan: -resume metoprolol; I have discontinued her hold on her metoprolol and removed her BP parameter -Patient requested only take her home dose of metoprolol which is 12.5 mg IR daily. (3) Upper GI bleeding: Status: Acute Assessment and plan: -DDX: Kellie Del Valle tear, PUD, stress induced gastritis/duodenitis -Surgical service has decided to forego EGD. -Patient is now medically treated with Protonix Cytotec and Carafate. -Hemoglobin is stable there is no been no further bleeding. -Now we need to control her tachycardia and hypotension. (4) Intertrochanteric fracture of right hip: Status: Acute Assessment and plan: -Pain improved with current regimen of oxycodone and Tylenol and Voltaren gel. -Continue with physical therapy as per Dr. Healy's instructions. Qualifiers: Encounter type: initial encounter Fracture type: closed Fracture alignment: displaced Qualified Code(s): S72.141A - Displaced intertrochanteric fracture of right femur, initial encounter for closed fracture (5) Anemia: Status: Chronic Assessment and plan: -Status post transfusion 2 units of packed cells currently stable continue iron therapy Qualifiers: Anemia type: unspecified type Qualified Code(s): D64.9 - Anemia, unspecified (6) DVT prophylaxis: Status: Acute Assessment and plan: -SCD and TEDS, no chemoprophylaxis in setting of UGIB (7) Discharge planning issues: Status: Acute Assessment and plan: -patient is from [facility] and was visiting here. -PT recommended the patient go home with home health however her and her request SNF placement Subjective Subjective Interval history since last seen: Patient states that she is feeling well today. Her and her are asking for her to be discharged to subacute rehab where they live in [facility] and referrals been sent. Exam Narrative Exam Narrative: Well-appearing older female sitting in the bed in no acute distress, ANO x 4, heart regular rate and rhythm, lungs clear to auscultation bilaterally, abdomen soft, nontender nondistended Objective Last Vital Signs Temp 99.1 F 10/08/23 06:04 Pulse 89 10/08/23 14:23 Resp 31 H 10/08/23 14:23 BP 127/66 10/08/23 14:23 Pulse Ox 95 10/08/23 09:11 Laboratory Results - last 24 hr 10/05/23 10/06/23 10/07/23 11:00 05:30 09:10 WBC RBC Hgb Hct MCV MCH MCHC RDW Plt Count MPV Immature Gran % Neutrophils % Lymphocytes % Monocytes % Eosinophils % Basophils % Nucleated RBC % Absolute Neutrophils Absolute Lymphocytes Absolute Monocytes Absolute Eosinophils Absolute Basophils Sodium Potassium Chloride Carbon Dioxide Anion Gap BUN Creatinine Est GFR (CKD-EPI 2020) Glucose Calcium Cortisol 8 Cortisol Baseline 27 H Cortisol 30 Minute Cortisol 60 Minute Stool H. pylori Ag Negative 10/07/23 10/07/23 10/08/23 10:40 11:10 06:15 WBC 8.94 RBC 2.89 L Hgb 8.9 L Hct 26.8 L MCV 93 MCH 30.8 MCHC 33.2 RDW 14.4 Plt Count 243 MPV 9.7 Immature Gran % 3.6 Neutrophils % 59.0 Lymphocytes % 24.6 Monocytes % 9.6 Eosinophils % 2.5 Basophils % 0.7 Nucleated RBC % 0.0 Absolute Neutrophils 5.28 Absolute Lymphocytes 2.20 Absolute Monocytes 0.86 H Absolute Eosinophils 0.22 Absolute Basophils 0.06 Sodium 143 Potassium 3.1 L Chloride 107 Carbon Dioxide 29.5 Anion Gap 6.5 BUN 16 Creatinine 0.8 Est GFR (CKD-EPI 2020) 75.37 Glucose 105 Calcium 8.4 L Cortisol Cortisol Baseline Cortisol 30 Minute 42 Cortisol 60 Minute 50 Stool H. pylori Ag Time Spent with Patient Time Spent with Patient: >50 minutes Time was spent: preparing to see the patient(eg.review tests), obtaining and/or reviewing separately otained hiistory, referring, communicating with other health director of critical care, indepentently interpreting results, counseling the patient and care coordination
--- NOTE | 2023-10-08 16:20 | CMPROGNOTE_ITS ---
Date of service: 10/08/23 Time of Service: 16:20 Care Management Progress Note Progress Note Text Progress Note Text: S/O: Lying in bed, at bedside. When presented with discharge, Deedee and her became anxious and stated they wanted SNF coordination. Deedee completed more than a hundred feet CGA with PT and FWW and stair training (3 steps into home). CM discussed EMS transport related to inability for Deedee to sit the length of transport due to new hip fx. Mayank, her had extensive paperwork for transport coverage; CM provided patient education central to medical necessity and deferred forms at this time. recommending EMS [facility]. After lengthy discussion and patient education central to requirements for SNF, CM sent referral to [facility] at [facility] and Deedee's request. 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 No bed offer by end of day, CM set expectation for morning discharge with home health and [facility]. Couple was agreeable to this plan, Mayank stated that [facility] then his preference would be to bring her home. CM reviewed delay of VNA services at this time, as before. CM updated echart info: PCP Duc Hackett MD of [facility], and Ortho Dr. Torin Alarcon [facility] per Access request, as Deedee will follow up within ten days of discharge. Anticipate Deedee will return home with new home health orders (vs. SNF) through in [facility]#[phone]. Agency reported services delayed 2-3 days at this time. CM continues to follow.
[2023-10-08] MEDS: Potassium Chloride 20 MEQ TABCR 40 MEQ PO (16:37)
[2023-10-08] MEDS: Acetaminophen 500 MG TAB 1000 MG PO (19:25)
[2023-10-08] MEDS: Pantoprazole 40 MG TABCR PO (19:26)
[2023-10-09] VITALS (14 sets, daily range): BP systolic 123–149; BP diastolic 64–96; PULSE 85–112; RESP 14–30; TEMP 36.3–37.6; O2SAT 94–96
[2023-10-09] MEDS: Acetaminophen 500 MG TAB 1000 MG PO (01:16)
[2023-10-09] MEDS: Pantoprazole 40 MG TABCR PO ×2 (09:00→20:30)
[2023-10-09] MEDS: Sucralfate 1 GM TAB PO ×4 (09:00→20:29)
[2023-10-09] MEDS: Polyethylene Glycol 3350 17 GM PACKET PO (09:00)
[2023-10-09] MEDS: Docusate Sodium 100 MG CAP PO ×2 (09:00→20:31)
[2023-10-09] MEDS: Metoprolol 12.5 MG TAB PO (09:00)
[2023-10-09] MEDS: miSOPROStol 100 MCG TAB PO ×4 (09:00→20:30)
[2023-10-09] MEDS: oxyCODONE 10 MG TAB PO ×2 (10:56→20:30)
[2023-10-09] MEDS: Diclofenac 1% Gel 100 GM TUBE TP ×3 (10:59→20:32)
--- NOTE | 2023-10-09 11:49 | PT.INNT ---
Date of service: 10/09/23 Time of Service: 10:13 PT Notes Visit Reasons: Right Hip Fracture Patient refused therapy at 10:13 due to not receiving her pain medication with breakfast. RASHEED Sanders states that pain meds are PRN and patient did not request them. Patient then refuses therapy at 11:39 due to expecting a call or visit from JONNIE Jones and being very anxious not to miss it. This clinician attempted to reassure patient that she will not miss the call or visit. Patient persisted in refusing therapy. Will resume this afternoon.
--- NOTE | 2023-10-09 12:46 | PDOC.CMPRO ---
Date of service: 10/09/23 Time of Service: 12:46 Care Management Progress Note Progress Note Text Progress Note Text: S/O: Deedee was lying in bed when CM met with her; her , Mayank was by her side. Mayank had requested that Deedee be transferred to [facility] in [place], [place]; he stated that he has connections with the facility and is confident that they will accept her for admission. JONNIE called admissions at [facility] who requested the referral is re faxed, as it was not received yesterday, when it was originally sent. JONNIE then received a call from Priscilla Soto ([phone]), who stated that Deedee was accepted for admission, pending bed availability. Later, Priscilla confirmed that a bed would be available for tomorrow, 10/10/23 at [facility] in [place]. JONNIE contacted [facility] to arrange transport. [facility] will transport Deedee tomorrow at 10am. CM communicated this with Deedee and Mayank. CM will continue to follow. A: Deedee is a 78 year old female admitted to [facility] on 10/02/23 for right hip fracture. P: Deedee will go to [facility], an inpatient rehab facility in [place], [place], coordinated by JONNIE. She will transport tomorrow, 10/10/23 at 10am via [facility]. JONNIE will continue to follow.
--- NOTE | 2023-10-09 14:03 | W.PM.PROGNOT ---
Date of Service Date of service: 10/09/23 Time of Service: 14:04 Assessment and Plan Assessment and plan (1) Systolic anterior movement of mitral valve: Status: Acute Assessment and plan: -echocardiographic evidence of systolic anterior motion of her anterior mitral valve leaflet causing a dynamic obstruction of her LVOT. -treatment is volume and rate control. -Goal will be for resting HR under 80 and under 100 w/ activity. (2) Sinus tachycardia: Status: Acute Assessment and plan: -resume metoprolol; I have discontinued her hold on her metoprolol and removed her BP parameter -Patient requested only take her home dose of metoprolol which is 12.5 mg IR daily. (3) Upper GI bleeding: Status: Acute Assessment and plan: -DDX: Kellie Del Valle tear, PUD, stress induced gastritis/duodenitis -Surgical service has decided to forego EGD. -Patient is now medically treated with Protonix Cytotec and Carafate. -Hemoglobin is stable there is no been no further bleeding. -Now we need to control her tachycardia and hypotension. (4) Intertrochanteric fracture of right hip: Status: Acute Assessment and plan: -Pain improved with current regimen of oxycodone and Tylenol and Voltaren gel. -Continue with physical therapy as per Dr. Healy's instructions. Qualifiers: Encounter type: initial encounter Fracture alignment: displaced Fracture type: closed Qualified Code(s): S72.141A - Displaced intertrochanteric fracture of right femur, initial encounter for closed fracture (5) Anemia: Status: Chronic Assessment and plan: -Status post transfusion 2 units of packed cells currently stable continue iron therapy Qualifiers: Anemia type: unspecified type Qualified Code(s): D64.9 - Anemia, unspecified (6) DVT prophylaxis: Status: Acute Assessment and plan: -SCD and TEDS, no chemoprophylaxis in setting of UGIB (7) Discharge planning issues: Status: Acute Assessment and plan: -patient is from [facility] and was visiting here. -Patient has [facility] bed in [facility] for 10/10 Subjective Subjective Interval history since last seen: Patient states that she is doing well today, and was looking forward to being discharged to subacute rehab Exam Narrative Exam Narrative: Well-appearing older female sitting in the bed in no acute distress, ANO x 4, heart regular rate and rhythm, lungs clear to auscultation bilaterally, abdomen soft, nontender nondistended Objective Last Vital Signs Temp 99.7 F H 10/09/23 07:40 Pulse 110 H 10/09/23 00:35 Resp 14 10/09/23 00:41 BP 136/73 10/09/23 00:41 Pulse Ox 94 10/09/23 00:41 Time Spent with Patient Time Spent with Patient: >50 minutes Time was spent: preparing to see the patient(eg.review tests), obtaining and/or reviewing separately otained hiistory, referring, communicating with other health animal care specialist, indepentently interpreting results, counseling the patient and care coordination
--- NOTE | 2023-10-09 15:18 | W.NUTRFU ---
Date of service: 10/09/23 Time of Service: 15:18 Nutrition Note NOTE: pt IS 78YO femaile from [facility], admitted for upper GI bleed (resolved, tachycardia with stystolic anterior movement of mitral valve. Her wt has been stable during admission (gained 4kg) and her intake at meals is reported at 75% most meals. She is ordered for regular diet with normal consistencies and tolerating well. no concerns with n/v/c/d per patient. no acute nutrition concerns and no nutrition interventions planned at this time. Will continue to monitor during her stay here. Time Spent in Nutritional Counseling and Treatment: 15 minutes
--- NOTE | 2023-10-09 16:26 | PTTR_ITS ---
Date of service: 10/09/23 Time of Service: 16:01 PT Notes Visit Reasons: Right Hip Fracture Inpatient Physical Therapy Treatment Note [facility] Date: 10/09/23 PRECAUTIONS: Fall, standard, activity as tolerated. SUBJECTIVE: Patient reports that she will be leaving tomorrow am. Is eager for transfer to rehab closer to home. Reports fatigue, agreeable to therapy but not sure what she will be able to accomplish. OBJECTIVE: Supine in bed, agreeable to therapy. ? PAIN: none reported VITALS: monitored by nursing staff.? Therapeutic Activities (02353j3): Direct one-on-one instruction in dynamic activities to improve functional performance. ? BED MOBILITY/TRANSFERS? Rolling L/R: independent Supine-sit: Patient requests assistance, manages without but takes extra time. ? Sit-supine: Patient requests assistance, this clinician hands her the leg retail and restaurant associate issued yesterday. Patient is modified independent with leg retail and restaurant associate. ? Sit-stand: SBA? Stand-sit: SBA? Bed-Chair: SBA ? Chair-bed: SBA Provided skilled cues and instruction on performance and technique throughout. ? Therapeutic Exercises (72022c4): Direct one-on-one instruction in therapeutic exercises to develop strength, endurance, range of motion and flexibility. Ambulation ? Assistive Device: FWW ? Weight bearing: full Assist: sba ? Distance:? 50 feet ? Deviation: kyphotic posture, reduced roshan, improved step length, adequate step height. ? Provided skilled instruction in proper exercise performance Provided skilled manual cues to facilitate proper muscle recruitment and/or form. ASSESSMENT:? Patient tolerates therapy well, reports fatigue. PLAN: Continue global strengthening per plan of care until patient is medically cleared for discharge. TREATMENT CODE/TIME: 23 minutes beginning at 16:01
[2023-10-09] MEDS: Senna TAB 1 TAB PO (20:30)
[2023-10-09] MEDS: diphenhydrAMINE 25 MG CAP PO (20:30)
[2023-10-09] MEDS: Acetaminophen 325 MG TAB 650 MG PO (20:31)
[2023-10-10] VITALS: BP 132/88; PULSE 87; RESP 18; TEMP 36.6; O2SAT 94
--- NOTE | 2023-10-10 07:12 | DSE_ITS ---
Date of service: 10/10/23 Time of Service: 08:43 DS: Diagnosis Discharge Diagnosis (1) Systolic anterior movement of mitral valve: Status: Acute Asessment and Plan: -echocardiographic evidence of systolic anterior motion of her anterior mitral valve leaflet causing a dynamic obstruction of her LVOT. -treatment is volume and rate control. -Goal will be for resting HR under 80 and under 100 w/ activity. (2) Sinus tachycardia: Status: Acute Asessment and Plan: -resume metoprolol; I have discontinued her hold on her metoprolol and removed her BP parameter -Patient requested only take her home dose of metoprolol which is 12.5 mg IR daily. (3) Upper GI bleeding: Status: Acute Asessment and Plan: -DDX: Kellie Del Valle tear, PUD, stress induced gastritis/duodenitis -Surgical service has decided to forego EGD. -Patient is now medically treated with Protonix Cytotec and Carafate. -Hemoglobin is stable there is no been no further bleeding. (4) Intertrochanteric fracture of right hip: Status: Acute Asessment and Plan: -Pain improved with current regimen of oxycodone and Tylenol and Voltaren gel. -Continue with physical therapy as per Dr. Healy's instructions. (5) Anemia: Status: Chronic Asessment and Plan: -Status post transfusion 2 units of packed cells currently stable continue iron therapy Discharge Plan Disposition Patient Disposition: Home W/Home Health Services Condition: Stable Discharge Details Reason For Visit: Right Hip Fracture Admit Date/Time: 10/02/23 23:02 Admit Provider: Neal Page Attending Provider: Neal Page Primary Care Provider: [facility] Course: Patient initially admitted with right hip fracture which was operatively repaired on 10/03/2023. However, she also had persistent postoperative hypotension which was subsequently determined to be secondary to systolic anterior movement of her mitral valve which was discovered on echocardiogram. This was treated with volume and rate control resulting and improved systolic function. Additionally, patient also had an upper GI bleed postsurgery decided to forego EGD and patient was medically treated with Protonix, Cytotec and Carafate with stable hemoglobin. Ultimately, patient's medical condition stabilized and it was determined that she was stable for discharge to subacute rehab Home Meds and New Rx's Prescriptions: New sucralfate 1 gram Tablet 1 g PO AC & HS Qty: 60 0RF pantoprazole 40 mg Tablet,Delayed Release (Dr/Ec) 40 mg PO BID@ Qty: 60 0RF misoprostol 100 mcg Tablet 100 mcg PO QID Qty: 60 0RF Continued metoprolol tartrate 25 mg tablet 12.5 mg PO DAILY calcium carbonate [Antacid (calcium carbonate)] 200 mg calcium (500 mg) tablet,chewable 1,000 mg PO DAILY cholecalciferol (vitamin D3) 250 mcg (10,000 unit) tablet 500 mcg PO DAILY Discontinued aspirin 81 mg tablet,chewable 81 mg PO DAILY Discharge Instructions Referrals: Riaz Healy MD [ [facility] STAFF PHYSICIAN] - Activity:: Activity as Tolerated Equipment/Supplies:: No Equipment Needed Diet:: Normal Diet Discharge Orders Discharge Orders: Discharge Order (Routine); Ordered 10/10/23 Ordered By: Kem Liao DS: Summary Time Spent with Patient providing and/or coordinating discharge services: Greater than 30 minutes Status at Discharge Functional status at discharge: bed bound Overall status at discharge: patient is not back to baseline Mental Status: mental status grossly normal Speech and Movement: speech and movement normal Mood: congruent mood Affect: normal affect Exam Narrative Exam Narrative: Well-appearing older female sitting in the bed in no acute distress, ANO x 4, heart regular rate and rhythm, lungs clear to auscultation bilaterally, abdomen soft, nontender nondistended Psych Mental Status: mental status grossly normal Speech and Movement: speech and movement normal Mood: congruent mood Affect: normal affect DS: Data Vitals/I&O Vitals and I&O: Vital Signs Temperature 97.9 F 10/10/23 00:00 Temperature Source Temporal Artery Scan 10/10/23 00:00 Pulse 87 10/10/23 00:00 Pulse Rhythm Regular 10/09/23 23:37 Pulse 88 10/09/23 13:24 Respiratory Rate 18 10/10/23 00:00 Respiratory Effort Normal 10/09/23 23:37 Respiratory Depth Normal 10/09/23 23:37 Respiratory Pattern Normal 10/09/23 23:37 Blood Pressure 132/88 10/10/23 00:00 Blood Pressure Mean 101 10/09/23 20:42 Blood Pressure Position Sitting 10/07/23 08:00 Pulse Oximetry 94 10/10/23 00:00 Respiratory End-tidal CO2 36 10/03/23 11:37 Oxygen Delivery Method Room Air 10/10/23 00:00 Oxygen Flow Rate 0 10/10/23 00:00 Pain Level 5 10/09/23 20:30 Comment pt lost consciousness attempting to stand from bedside with [employer], VS taken post-reposition and return to consciousness. 10/04/23 22:35 Intake & Output 10/09/23 10/10/23 10/10/23 17:59 05:59 17:59 Intake Total 820 / 820 750 / 1570 Output Total 625 / 625 450 / 1075 300 / 300 Balance 195 / 195 300 / 495 -300 / -300 Weight 131 lb 2.801 oz 129 lb 10.109 oz Intake: IV 300 / 300 Oral 520 / 520 750 / 1270 Output: Urine 625 / 625 450 / 1075 300 / 300 Other: Urine Color Yellow Yellow Yellow Urine Appearance Cloudy Clear Clear Urine Odor Normal None None Comment Quantity sufficient of urine mixed with stool. Volume not measured. Estimated 100ml. Stool Occult Blood Positive Positive Stool Size Moderate Large Moderate Stool Characteristics Formed Soft Soft Hard Black Brown Voiding Methods Bedside Commode Bedside Commode Bedside Commode [facility] All Active Problems (Updated 10/07/23 @ 10:27 by Antione Lehman MD) Sinus tachycardia (Acute) Systolic anterior movement of mitral valve (Acute) Upper GI bleeding (Acute) Anemia (Chronic) Intertrochanteric fracture of right hip (Acute 10/02/23) Discharge planning issues (Acute) DVT prophylaxis (Acute) Medical History Osteoporosis Hypertension Surgical History S/P vertebroplasty Status post-operative repair of closed fracture of left hip Family History Mother , age 78, does not know cancer source Cancer Father , in 80s Heart disease Social History Smoking/Tobacco Use Status: Never Smoking risk assessment performed?: Yes Alcohol Intake: current Details: drink once/week Drug use: Never Substance use type: does not use Housing: other Additional Social history: Lives with Mayank in [facility] near [place]. They [facility] at [facility]. 2 kids but not local Time Spent with Patient Time Spent with Patient: <45 minutes Time was spent: preparing to see the patient(eg.review tests), obtaining and/or reviewing separately otained hiistory, referring, communicating with other health patient care associate, indepentently interpreting results, counseling the patient and care coordination
[2023-10-10] MEDS: Pantoprazole 40 MG TABCR PO (08:01)
[2023-10-10] MEDS: Metoprolol 12.5 MG TAB PO (08:01)
[2023-10-10] MEDS: Sucralfate 1 GM TAB PO (08:01)
[2023-10-10] MEDS: miSOPROStol 100 MCG TAB PO (08:01)
[2023-10-10] MEDS: oxyCODONE 10 MG TAB PO (08:12)
[2023-10-10] MEDS: Acetaminophen 325 MG TAB 650 MG PO (08:12)
[2023-10-10 09:50] VITALS: TEMP 36.9
[2023-10-10 10:00] VITALS: O2SAT 95
[2023-10-10 10:01] VITALS: BP 81/49; PULSE 72; O2SAT 96
--- NOTE | 2023-10-10 10:48 | PDOC.CMDIS ---
Date of service: 10/10/23 Time of Service: 10:48 LACE Index Scoring Tool Questions: Length of Stay (in days): 7 - 13 Was the patient admitted via the E.D.?: Yes E.D. Visits: 0 Answers: Total Score: 8 Risk of Readmission: Low Risk Care Management Discharge Plan Reason for Hospitalization: Hip Fracture Discharge Plan: Deedee will transfer to [facility] in [place], [place] today. She will transport via [facility], coordinated by CM. Per MD, she is not able to tolerate the extended transport in a sitting position. Her will meet her at the facility. She will follow up with her PCP and discharge plan of care. [facility], and to be closer to home. Patient/Family Education Needs: Review discharge instructions and limitations, discussion of self care needs including ask me three. Services Needed at Discharge: Jail Facility ([facility]) and [facility]
== END 2023-10-10 10:20 | disposition home health service (06) | DRG 480 ==
LOC: ER 10-03 → MS 10-03 00:09 → ICU 10-04 23:59
PROVIDERS: Family Medicine; Internal Medicine; Nurse Practitioner Acute Care; Student in an Organized Health Care Education/Training Program; Admitting Provider Family Medicine; Emergency Provider Physician Assistant; PCP Internal Medicine; Visit Provider Family Medicine
PROC: 0QS606Z Reposition Right Upper Femur with Intramedullary Internal Fixation Device, Open Approach (ICD-10-PCS; CPT 27245; principal; 2023-10-03 07:35)
DX: S72.141A Displaced intertrochanteric fracture of right femur, initial encounter for closed fracture (principal); K29.01 Acute gastritis with bleeding; D62 Acute posthemorrhagic anemia; N39.0 Urinary tract infection, site not specified; Z16.12 Extended spectrum beta lactamase (ESBL) resistance; I50.1 Left ventricular failure, unspecified; I34.89 Other nonrheumatic mitral valve disorders; I10 Essential (primary) hypertension; M81.0 Age-related osteoporosis without current pathological fracture; W18.39XA Other fall on same level, initial encounter; I95.9 Hypotension, unspecified; R00.0 Tachycardia, unspecified; R50.9 Fever, unspecified; B96.20 Unspecified Escherichia coli [E. coli] as the cause of diseases classified elsewhere
CPT/HCPCS: 27245; 00123; 36415; 36430; 51702; 73552; 80048; 80053; 80400; 82533; 84145; 85027; 86850; 86900; 86901; 86920; 87040; 87077; 87206; 87338; 87637; 87641; 93005; 93308; 96374; 96375; 96376; 97110; 97116; 97162; 97530; 99221; 99223; 99231; 99285; J1650; 71045; 72170; 73501; 73502; 80202; 81003; 81015; 82728; 83540; 83550; 83605; 83735; 85014; 85018; 85025; 87086; 87186; 93010; 94760; 99233; 99239; 99291; J0131; J0690; J0834; J1335; J1756; J1885; J2270; J2405; J2704; J2765; J3010; J3490; P9016